=== PATIENT | female | born 1980 | race Caucasian/White ===

== ENCOUNTER → 2018-12-20 | Outpatient (CLI) | payer OTHER, SELFPAY ==
[2016-11-26 09:05] VITALS: BMI 36.0
[2018-12-20 17:56] LABS: Absolute Lymphocyte Count 1.81 X10^3/ul (0.83-4.51); Absolute Neutrophil Count 7.6 X10^3/uL (2.0-7.7); Basophil# 0.11 X10^3/uL; Eosinophil# 0.09 X10^3/uL; Eosinophils% 0.9 % (0-5); Hematocrit 39.1 % (37-47); Hemoglobin 12.7 g/dl (12.0-15.0); Lymphocyte # 1.81 X10^3/ul (4.0); Lymphocyte % 17.2 % (19-41); Mean Corp Hgb Conc 32.5 g/gl (32-36); Mean Corpuscular Hgb 27.3 pg (27.0-32.0); Mean Corpuscular Volume 83.9 fL (81-99); Mean Platelet Vol. 10.2 fl (6.2-12.0); Monocyte# 0.87 X10^3/uL; Monocyte% 8.3 % (0-10); Neutrophil # 7.61 X10^3/uL (2.7-7.7); Neutrophil % 72.4 % (47-70); Platelet Count 259 K/mm3 (150-450); RBC Distribution Width CV 14.1 % (11.6-14.6); RBC Distribution Width SD 43.1 fl (35.1-43.9); Red Blood Count 4.66 M/mm3 (4.2-5.4); White Blood Count 10.5 K/mm3 (4.4-11.0)
[2018-12-20 17:57] LABS: POSITIVE COUNT NO; POSITIVE DIFFERENTIAL NO; POSITIVE MORPHOLOGY NO
[2018-12-20 18:13] LABS: Vitamin D,25 Hydroxy 20.5 ng/mL (29.95-100.01)
[2018-12-20 18:17] LABS: Anion Gap 7 (5-15); BUN 12 mg/dL (7-18); BUN/Creat Ratio 15.3 RATIO (10-20); Calcium,Total 8.6 mg/dL (8.5-10.1); Chloride 107 mmol/L (98-107); Creatinine, Serum 0.78 mg/dL (0.55-1.02); EST Glomerular Filtration Rate 88 mL/min (>60); Est Glom Filt Rate - Afr Amer 106 mL/min (>60); Glucose 76 mg/dL (74-106); Potassium 3.8 mmol/L (3.5-5.1); Sodium Level 140 mmol/L (136-145); Thyroid Stim Hormone (TSH) 1.72 uIU/mL (0.358-3.74)
== END | disposition home or self-care (01) ==
LOC: MTLAB 16:58
PROVIDERS: Family Provider Family Medicine; PCP Family Medicine; Referring Provider Family Medicine; Visit Provider Family Medicine
DX: R53.83 Other fatigue (principal)
CPT/HCPCS: 36415; 80048; 82306; 84443; 85025

== ENCOUNTER 2019-10-04 05:51 | Day surgery (SDC) | payer OTHER, SELFPAY ==
[2019-08-09 08:36] VITALS: BMI 36.0
--- NOTE | 2019-08-09 09:01 | HP_ITS ---
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 Is patient in pain?: No Allergies Antihistamines - Alkylamine Adverse Reaction (Verified 08/09/19 08:35) Vomiting meperidine [From Demerol] Adverse Reaction (Verified 08/09/19 08:35) Vomiting Medications Levonorgestrel [Mirena] 1 ea IY DAILY 11/25/16 [History Confirmed 11/26/16] cholecalciferol (vitamin D3) 2,000 unit chewable tablet 2,000 unit PO DAILY 08/09/19 [History Confirmed 08/09/19] citalopram 20 mg tablet 20 mg PO DAILY 08/09/19 [History Confirmed 08/09/19] lansoprazole 30 mg capsule,delayed release 30 mg PO DAILY 08/09/19 [History Confirmed 08/09/19] [facility] Medical History Epigastric pain (Acute) Surgical History S/P appendectomy (Acute) S/P section (Acute) S/P hemorrhoidectomy (Acute) S/P laparoscopic cholecystectomy (Acute) S/P myringotomy with insertion of tube (Acute) S/P tonsillectomy and adenoidectomy (Acute) Family History Father CAD (coronary artery disease) Hypertension Brother CAD (coronary artery disease) Hypertension Social History (Updated 08/09/19 @ 09:[address] Johnson Galvin MD) Smoking Status: Never smoker alcohol intake: never HPI HPI HPI: ATNIA LE, is a 38 F who presents to the office today for HPI HPI Surgical H&P: Yes HPI: TANIA LE, is a 38 F who presents to the office today for surgical consultation regarding escalating reflux symptoms. The patient was referred by Dr Sonido Miller and a written copy of my surgical consult recommendations will be returned to him. Very pleasant 38-year-old female. I had an opportunity to assist her November 26, 2016 with a diagnostic laparoscopy and laparoscopic partial omentectomy and resection of a area of pericolonic hemorrhage and I added a laparoscopic appendectomy to that. She had presented with abdominal pain and had had hemorrhage into her omentum that was identified laparoscopically. She is had no additional problems since that time. She does note that she has had some progressive weight gain. Current BMI is 36. Dating all the way back to college she was on ranitidine therapy intermittently to control reflux symptoms. More recently she was feeling a lump in her throat and had escalating GERD symptoms. Heartburn. She was placed on Prevacid therapy March 2019. She is still requiring this therapy to control her reflux symptoms. She has never had an upper endoscopy. She otherwise enjoys good health. Exam Const General: cooperative, comfortable, no acute distress Nutritional Appearance: obese Orientation: alert, awake, oriented x3 Chest Chest palpation & inspection: normal inspection of the chest Resp Effort & Inspection: normal respiratory effort Auscultation: clear to auscultation bilaterally Cardio Rate: regular rate Rhythm: regular rhythm GI Palpation: soft Auscultation: normal bowel sounds Neuro General: alert, awake Extrem General: no calf tenderness bilaterally Psych Appearance: grossly normal Assessment & Plan Problems 1. Gastroesophageal reflux disease, esophagitis presence not specified K21.9 Plan I concur with recommendations to proceed with a esophagogastroduodenoscopy with possible biopsy or polypectomy as indicated. Very careful inspection for reflux disease will be pursued. The patient is aware of technique, benefit, risk and alternatives. We will schedule and proceed at her discretion. In addition I have counseled her on the benefit of weight loss in relation to GERD symptoms. I have some suspicion that her slow progressive weight gain is contributing to her escalation of symptoms. I have encouraged her to attempt a 20 to 25 pound weight loss to see if symptoms improve. It is of note that the patient's suggest that her feeling of a lump in her throat disappeared when she started the Prevacid. She does have a rather thick neck and I have difficulties palpating her thyroid. I instructed her that if her symptoms were to recur then she might consider a thyroid ultrasound. I very much appreciate the kind opportunity of assisting with her surgical care Cc: Dr Sonido Gavlin M.D., F.A.C.S. Orders Orders: EGD Today Coding Level of Care Code 16161 Diagnoses Gastroesophageal reflux disease, esophagitis presence not specified K21.9 ??Esophagitis presence: esophagitis presence not specified 08/09/19 0901 <Electronically signed by Johnson hedrick MD> Date _ Johnson Galvin MD
[2019-10-04] VITALS (7 sets, daily range): BP systolic 129–173; BP diastolic 72–116; PULSE 74–90; RESP 15–16; TEMP 36.7–36.9; O2SAT 95–100; BMI 42.3
--- NOTE | 2019-10-04 | GASB_PTH ---
PATIENT: TANIA LE LOC: EN U#:[id number] AGE/SX: 38/F ROOM: RE10/04/[address]: Dr. Johnson Galvin MD : 1980 BED: DIS: 10/04/2019 SPEC #: [id number] RECD: 10/04/19 08:48 STATUS: CARMEN ROHAN #: [id number] QUINN: 10/04/19 00:[address]: Johnson Galvin DEPT: SURGICAL PATHOLOGY RECD BY: Quinn Kuhn ENTERED: 10/04/19 10:44 SP TYPE: Gastric Bx OTHR DR: Dr. Sonido Miller MD Tissues: A - Duodenum, NOS B - Gastric mucous membrane C - Esophagus, NOS Procedures: Surgery Specimen Level IV HEADER OPERATION: EGD (MOD) PRE-OP DIAGNOSIS: GERD TISSUE SUBMITTED: A - Duodenum biopsy, B - Antrum biopsy for H. pylori and pathology, C - Distal esophageal biopsy MICROSCOPIC DIAGNOSIS A. Duodenum, biopsy: A fragment of small intestinal mucosa, no pathologic diagnosis. B. Antral biopsy: Mild gastritis. See microscopic description and comment. C. Distal esophageal biopsy: Fragments of squamous epithelium with focal minimal chronic inflammation. SJ:irvin 10/05/19 COMMENT B. The results of immunohistochemistry for Helicobacter pylori will be reported separately ([id number]). MICROSCOPIC DESCRIPTION Slides are reviewed. B. The specimen shows fragments of gastric mucosa with chronic inflammatory cell infiltrates in the lamina propria consisting of lymphocytes and plasma cells, consistent with mild chronic gastritis. GROSS DESCRIPTION A - Received in fixative is one container labeled with the patient's name and designated duodenal biopsy. The specimen consists of one irregular fragment of light brunson soft tissue that measures 0.3 x 0.2 x 0.1 cm. The specimen is totally submitted in one cassette. B - Received in fixative is one container labeled with the patient's name and designated antral biopsy. The specimen consists of two irregular fragments of light brunson soft tissue that in aggregate measure 0.6 x 0.3 x 0.1 cm. The specimen is totally submitted in one cassette. C - Received in fixative is one container labeled with the patient's name and designated distal esophageal biopsy. The specimen consists of multiple irregular fragments of light brunson soft tissue that in aggregate measure 1 x 0.3 x 0.1 cm. The specimen is totally submitted in one cassette. / SJ:rg 10/04/19 TC:3 CPT: 85797 x3
[2019-10-04] MEDS: Lactated Ringers 1,000 ML 100 ML IV (06:24)
--- NOTE | 2019-10-04 06:32 | PCM.HP.BLA ---
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 Is patient in pain?: No Allergies Antihistamines - Alkylamine Adverse Reaction (Verified 08/09/19 08:35) Vomiting meperidine [From Demerol] Adverse Reaction (Verified 08/09/19 08:35) Vomiting Medications Levonorgestrel [Mirena] 1 ea IY DAILY 11/25/16 [History Confirmed 11/26/16] cholecalciferol (vitamin D3) 2,000 unit chewable tablet 2,000 unit PO DAILY 08/09/19 [History Confirmed 08/09/19] citalopram 20 mg tablet 20 mg PO DAILY 08/09/19 [History Confirmed 08/09/19] lansoprazole 30 mg capsule,delayed release 30 mg PO DAILY 08/09/19 [History Confirmed 08/09/19] [facility] Medical History Epigastric pain (Acute) Surgical History S/P appendectomy (Acute) S/P section (Acute) S/P hemorrhoidectomy (Acute) S/P laparoscopic cholecystectomy (Acute) S/P myringotomy with insertion of tube (Acute) S/P tonsillectomy and adenoidectomy (Acute) Family History Father CAD (coronary artery disease) Hypertension Brother CAD (coronary artery disease) Hypertension Social History (Updated 08/09/19 @ 09:[address] Johnson Galvin MD) Smoking Status: Never smoker alcohol intake: never HPI HPI HPI: TANIA LE is a 38 F who presents to the office today for HPI HPI Surgical H&P: Yes HPI: TAINA LE, is a 38 F who presents to the office today for surgical consultation regarding escalating reflux symptoms. The patient was referred by Dr Sonido Miller and a written copy of my surgical consult recommendations will be returned to him. Very pleasant 38-year-old female. I had an opportunity to assist her November 26, 2016 with a diagnostic laparoscopy and laparoscopic partial omentectomy and resection of a area of pericolonic hemorrhage and I added a laparoscopic appendectomy to that. She had presented with abdominal pain and had had hemorrhage into her omentum that was identified laparoscopically. She is had no additional problems since that time. She does note that she has had some progressive weight gain. Current BMI is 36. Dating all the way back to college she was on ranitidine therapy intermittently to control reflux symptoms. More recently she was feeling a lump in her throat and had escalating GERD symptoms. Heartburn. She was placed on Prevacid therapy March 2019. She is still requiring this therapy to control her reflux symptoms. She has never had an upper endoscopy. She otherwise enjoys good health. Exam Const General: cooperative, comfortable, no acute distress Nutritional Appearance: obese Orientation: alert, awake, oriented x3 Chest Chest palpation & inspection: normal inspection of the chest Resp Effort & Inspection: normal respiratory effort Auscultation: clear to auscultation bilaterally Cardio Rate: regular rate Rhythm: regular rhythm GI Palpation: soft Auscultation: normal bowel sounds Neuro General: alert, awake Extrem General: no calf tenderness bilaterally Psych Appearance: grossly normal Assessment & Plan Problems 1. Gastroesophageal reflux disease, esophagitis presence not specified K21.9 Plan I concur with recommendations to proceed with a esophagogastroduodenoscopy with possible biopsy or polypectomy as indicated. Very careful inspection for reflux disease will be pursued. The patient is aware of technique, benefit, risk and alternatives. We will schedule and proceed at her discretion. In addition I have counseled her on the benefit of weight loss in relation to GERD symptoms. I have some suspicion that her slow progressive weight gain is contributing to her escalation of symptoms. I have encouraged her to attempt a 20 to 25 pound weight loss to see if symptoms improve. It is of note that the patient's suggest that her feeling of a lump in her throat disappeared when she started the Prevacid. She does have a rather thick neck and I have difficulties palpating her thyroid. I instructed her that if her symptoms were to recur then she might consider a thyroid ultrasound. I very much appreciate the kind opportunity of assisting with her surgical care Cc: Dr Sonido Galvin M.D., F.A.C.S. Orders Orders: EGD Today Coding Level of Care Code 72493 Diagnoses Gastroesophageal reflux disease, esophagitis presence not specified K21.9 Esophagitis presence: esophagitis presence not specified Since the patient's office visit she continues to complain of upper abdominal pain and a sensation of acid. She states that she has to take an acids because of breakthrough discomfort despite her proton pump inhibitor. I plan to proceed with a esophagogastroduodenoscopy with possible biopsy or polypectomy is indicated. I definitively will sample for H. pylori as well. Johnson Galvin M.D., F.A.C.S. Essential Procedure Criteria Procedure Essential: Yes Criteria Note: On 08/29/2019 the [facility] ([facility]) Public Order signed by [facility] Director Chanel Ruiz M.D., regarding the Management of Non-Essential Surgeries and Procedures for the purpose of preserving Personal Protective Equipment (PPE) and critical hospital capacity and resources within [place] went into effect as of 08/30/2019 at 5:00PM. According to the [facility] Public Order: This action will remain in full force and effect until the State of Emergency declared by the Governor no longer exists or the Director of the [facility] rescinds or modifies this Order.. This [facility] order stated all non-essential or elective surgeries and procedures that utilize PPE should be delayed unless there is undue risk to the current or future health of a patient. After reviewing the aforementioned [facility] Public Order and the patients clinical case, I have determined that the scheduled procedure meets the criteria to go forward. Risk to Patient if Procedure Delayed: Risk of rapidly worsening to severe symptoms
--- NOTE | 2019-10-04 07:30 | IMM_PTH ---
PATIENT: TANIA LE LOC: EN U#:[id number] AGE/SX: 38/F ROOM: RE10/04/[address]: Dr. Johnson Galvin MD : 1980 BED: DIS: 10/04/2019 SPEC #: [id number] RECD: 10/04/19 11:47 STATUS: CARMEN RESky #: [id number] QUINN: 10/04/19 07:[address]: Johnson Galvin DEPT: IMMUNOHISTOCHEMISTRY RECD BY: Joselyn Mead ENTERED: 10/04/19 11:48 SP TYPE: IMMUNO OTHR DR: Dr. Sonido Miller MD Tissues: B - Stomach, NOS Procedures: H Pylori (initial) PHYSICIAN & INSTITUTION [place] [address] SPECIMEN INFORMATION: Tissue Source: B - Antrum biopsy Clinical Info: GERD Specimen Number: [id number] CPT code: 92796 METHODOLOGY: Deparaffinized sections of prefer/formalin-fixed tissue or PAP/DQ stained slides are incubated with monoclonal/polyclonal antibodies/oligonucleotide probes. Localization is made via biotin free immunoperoxidase method. Appropriate controls are performed and reacted as expected. Results on target cell population are indicated in the following table: RESULTS: ANTIBODY / CLONE RESULT Block B H Pylori (polyclonal) negative These tests were developed and their performance characteristics determined by [facility]. They may not have been cleared or approved by the U.S. Food and Drug Administration. The FDA has determined that such clearance or approval is not necessary. INTERPRETATION: B. Antrum biopsy: Negative for Helicobacter pylori organisms. SJ:irvin 10/06/19
--- NOTE | 2019-10-11 12:27 | OP.CCLET_ITS ---
10/11/2019 Sonido Miller [address] [place] [address] Re : Upper GI endoscopy procedure for Urszula Garcia Dear Dr. Miller This procedure was performed on Friday, October 04, 2019. My impressions and recommendations are as follows: Impressions : - LA Grade A reflux esophagitis. Biopsied. - Medium-sized hiatal hernia. - Z-line regular, 37 cm from the incisors. - Erythematous mucosa in the antrum. Biopsied. - Normal examined duodenum. Biopsied. Recommendations : - Discharge patient to home. - Resume previous diet. - Continue present medications. - Telephone my office for pathology results in 1 week. Anticipate ongoing weight loss; consider future esophageal manometry and possible reflux procedure pending weight improvement My findings are described in the full procedure note, which is enclosed. If I can be of further assistance, please feel free to contact me at Doctor phone number(s): Work: . Sincerely, Johnson Galvin MD 10/04/2019 7:44:40 AM This report has been signed electronically.
--- NOTE | 2019-10-11 12:27 | OP.EGD_ITS ---
Patient Name: Urszula Garcia Procedure Date: 10/04/2019 7:09 AM Date of : 1980 Age: 38 Procedure: Upper GI endoscopy Indications: Epigastric abdominal pain, Suspected esophageal reflux Providers: Johnson Galvin MD Referring MD: Sonido Miller Medicines: Midazolam 3.5 mg IV, Fentanyl 100 micrograms IV Complications: No immediate complications. Procedure: Pre-Anesthesia Assessment: - Prior to the procedure, a History and Physical was performed, and patient medications and allergies were reviewed. The patient's tolerance of previous anesthesia was also reviewed. The risks and benefits of the procedure and the sedation options and risks were discussed with the patient. All questions were answered, and informed consent was obtained. Prior Anticoagulants: The patient has taken no previous anticoagulant or antiplatelet agents. ASA Grade Assessment: II - A patient with mild systemic disease. After reviewing the risks and benefits, the patient was deemed in satisfactory condition to undergo the procedure. After obtaining informed consent, the endoscope was passed under direct vision. Throughout the procedure, the patient's blood pressure, pulse, and oxygen saturations were monitored continuously. The gastroscope was introduced through the mouth, and advanced to the second part of duodenum. The upper GI endoscopy was accomplished without difficulty. The patient tolerated the procedure well. Moderate Sedation: Moderate (conscious) sedation was personally administered by the endoscopist. The following parameters were monitored: oxygen saturation, heart rate, blood pressure, and response to care. Total physician intraservice time was 12 minutes. Scope In: 7:31:36 AM Scope Out: 7:38:31 AM Total Procedure Duration Time 0 hours 6 minutes 55 seconds Findings: LA Grade A (one or more mucosal breaks less than 5 mm, not extending between tops of 2 mucosal folds) esophagitis with no bleeding was found 37 cm from the incisors. Biopsies were taken with a cold forceps for histology. A medium-sized hiatal hernia was present. The Z-line was regular and was found 37 cm from the incisors. Diffuse mildly erythematous mucosa without bleeding was found in the gastric antrum. Biopsies were taken with a cold forceps for histology. The examined duodenum was normal. Biopsies were taken with a cold forceps for histology. Impression: - LA Grade A reflux esophagitis. Biopsied. - Medium-sized hiatal hernia. - Z-line regular, 37 cm from the incisors. - Erythematous mucosa in the antrum. Biopsied. - Normal examined duodenum. Biopsied. Recommendation: - Discharge patient to home. - Resume previous diet. - Continue present medications. - Telephone my office for pathology results in 1 week. Anticipate ongoing weight loss; consider future esophageal manometry and possible reflux procedure pending weight improvement Procedure Code(s): --- Professional --- 35360, Esophagogastroduodenoscopy, flexible, transoral; with biopsy, single or multiple 96031, 59, Moderate sedation services provided by the same physician or other qualified health neonatal intensive care nurse performing the diagnostic or therapeutic service that the sedation supports, requiring the presence of an independent trained observer to assist in the monitoring of the patient's level of consciousness and physiological status; initial 15 minutes of intraservice time, patient age 5 years or older Diagnosis Code(s): --- Professional --- K21.0, Gastro-esophageal reflux disease with esophagitis K44.9, Diaphragmatic hernia without obstruction or gangrene K31.89, Other diseases of stomach and duodenum R10.13, Epigastric pain CPT copyright 2017 [employer]. All rights reserved. The codes documented in this report are preliminary and upon sample steamer review may be revised to meet current compliance requirements. Johnson Galvin MD 10/04/2019 7:44:40 AM This report has been signed electronically. Number of Addenda: 0 Note Initiated On: 10/04/2019 7:09 AM
== END 2019-10-04 08:25 | disposition home or self-care (01) ==
LOC: EN 05:53 → AC 05:53
PROVIDERS: PCP Family Medicine; Referring Provider Family Medicine; Visit Provider Surgery
PROC: (CPT 43239; principal; 2019-10-04 07:25)
DX: K29.50 Unspecified chronic gastritis without bleeding (principal); K21.0 Gastro-esophageal reflux disease with esophagitis; K44.9 Diaphragmatic hernia without obstruction or gangrene
CPT/HCPCS: 43239; 88305; 88342; 99152; 99153; J7120

== ENCOUNTER → 2019-12-04 16:26 | Outpatient (CLI) | payer OTHER, SELFPAY ==
[2019-10-04 06:15] VITALS: BMI 42.3
[2019-12-04 18:09] LABS: Hematocrit 39.9 % (37-47); Hemoglobin 12.1 g/dL (12.0-15.0); Mean Corp Hgb Conc 30.3 g/dL (32-36); Mean Corpuscular Hgb 26.7 pg (27.0-32.0); Mean Corpuscular Volume 88.1 fL (81-99); Mean Platelet Vol. 10.5 fl (6.2-12.0); Platelet Count 287 K/mm3 (150-450); RBC Distribution Width CV 14.5 % (11.6-14.6); RBC Distribution Width SD 46.2 fl (35.1-43.9); Red Blood Count 4.53 M/mm3 (4.2-5.4)
[2019-12-04 18:30] LABS: Anion Gap 7 (5-15); BUN 11 mg/dL (7-18); BUN/Creat Ratio 15.9 RATIO (10-20); Calcium,Total 8.8 mg/dL (8.5-10.1); Chloride 106 mmol/L (98-107); Creatinine, Serum 0.69 mg/dL (0.55-1.02); EST Glomerular Filtration Rate 101 mL/min (>60); Est Glom Filt Rate - Afr Amer 122 mL/min (>60); Glucose 79 mg/dL (74-106); Magnesium 1.9 mg/dL (1.6-2.6); Potassium 4.1 mmol/L (3.5-5.1); Sodium Level 139 mmol/L (136-145)
== END ==
PROVIDERS: PCP Family Medicine; Referring Provider Family Medicine; Visit Provider Family Medicine
DX: R42 Dizziness and giddiness (principal)
CPT/HCPCS: 36415; 80048; 83735; 85027

== ENCOUNTER 2020-10-08 09:00 | Outpatient (RCR) | payer BC, SELFPAY ==
[2019-10-04 06:15] VITALS: BMI 42.3
--- NOTE | 2020-10-08 09:00 | BH.COMM_ITS ---
Communication Note - Communication with Client Communication Note: Met with pt to complete initial paperwork. No significant changes since pre-admission screening. Completed [facility] Suicide Screening. Current risk is moderate. No SI since 09/22/20 noted. Protective factors. Future- oriented.
--- NOTE | 2020-10-08 09:05 | BH.SGPN.GN ---
Behaviors/Verbalizations/Mental Status: []Client alert and oriented, neatly dressed and groomed. Eye contact good. Motor activity appropriate. Speech within normal limits. Affect constricted, mood anxious. Thoughts linear, logical, no signs of hallucinations or delusions. Reviewed client?s symptom tracker, no risk for suicidal ideation, plan, or intent as of 10/08/20 Client Response/Progress/Benefit: []Client responded well to session, attentive and receptive to feedback. Client's first day of IOP tx and reports feeling overwhelmed this morning. Client received supportive statements from peers to reduce anxiety on her first day. Client stated her biggest goal while in IOP is to gain healthy boundaries to support client's emotions and relationships. Client will be coming to IOP and working part-time and she addressed the need for self-care. Appeared to benefit from connecting with peers and gaining support. Will continue IOP tx to prevent decompensation, improve daily functioning, and learn healthy coping skills. Narrative Note: []
--- NOTE | 2020-10-08 10:10 | BH.SGPN.GN ---
Behaviors/Verbalizations/Mental Status: [] Eye contact is good. Motor activity is appropriate. Appearance is casual. Speech is Appropriate. Mood is depressed. Affect is flat. Thoughts are linear and logical. No evidence of psychosis. Client Response/Progress/Benefit: [] Pt was an active participant in group discussion and activity. Attentive during psychoeducation. Along with peers she provided insight and feedback on the definition of stress which included; negative reaction to changes, chaos, racing thoughts, physical pains, dissociation, and exhaustion. Also provided feedback on the benefits of stress which included; motivation, improved mood, helps us complete goals, and can lead to accomplishments. Completed stress jar with primary stressors being mental health, marriage, finances . Benefited from group by identifying distress vs eustress as well as current stressors and their impact. Will continue in IOP to maintain safety, prevent decompensation, and increase healthy coping. Narrative Note: []
--- NOTE | 2020-10-08 11:18 | BH.SGPN.GN ---
Behaviors/Verbalizations/Mental Status: []Client alert and oriented, neat and casually dressed and groomed. Eye contact good. Motor activity WNL. Speech within normal limits. Affect congruent, mood anxious. Thoughts linear, logical, no signs of hallucinations or delusions. Client Response/Progress/Benefit: []Client new to IOP tx. Did well to remain engaged in session AEB listening attentively to others, providing input during session, and taking notes throughout. Client remained attentive during discussion about the 4 A's of managing stress and reflected with the group on the various benefits of each. Client stated she wants to work on stressor of negative thoughts about herself and her mental health. Client reported she is going to practice accepting that mental health is important to address and practice identifying and challenging irrational thought patterns. Noted this will help to reduce shame regarding need for mental health tx. Seemed to benefit from increased awareness of the impact of stress on mental health and relationships, as well as increasing repertoire of stress management strategies. Client is to continue treatment to begin focusing on stress management and emotion regulation, as well as improving healthy coping, and preventing decompensation. Narrative Note: []
--- NOTE | 2020-10-09 10:00 | BH.SGPN.GN ---
Behaviors/Verbalizations/Mental Status: [] Eye contact is good. Motor activity is appropriate. Appearance is casual. Speech is Appropriate. Mood is depressed. Affect is flat. Thoughts are linear and logical. No evidence of psychosis Client Response/Progress/Benefit: [] Pt was an active participant in group discussion and activity. Attentive during psychoeducation. Along with peers was able to identify barriers to taking action on her mental health which included; fear of failure, the unknown, change, one's environment, past negative experiences, being passive, and fear of vulnerability. Identified several symptoms and stressors that she would feels are holding her back from progress such as guilt, stress, unhealthy coping, not deserving happiness, and impossible standards. Benefited from increased self-awareness of obstacles. Will continue in IOP to maintain safety and increase healthy coping skills. Narrative Note: []
--- NOTE | 2020-10-09 10:00 | BH.NA_ITS ---
Physical Data - Vital Signs Pulse Rate: 80 Blood Pressure: 135/95 - Height/Weight Height: 1.57 m Weight:: 104.326 kg Weight in Pounds: 230.0 lbs Current Medication Compliance - Medication Compliance Do you take your medication as prescribed?: Yes Nutritional History - Appetite Nutritional Instructions:: If client shows signs of a swallowing problem, weight change of 10 pounds or more in the last month, or is on a diabetic diet, the physician will review and request a dietitian consult, as appropriate. All unintentional weight loss will be referred to the physician for decision on need for dietitian consult. Describe your appetite:: Good Additional nutritional information:: Client states last week her appetite was decreased, but states her appetite has returned to normal. Functional Assessment - Sleep Pattern Describe any problems with sleeping: Client states she sleeps 6-7 hours per night. - Activities Motor Activity:: Functional Sensory/Communication Assess - Communication Problems Do you have difficulty understanding what people are saying?: No Medical Problems/History - Gastrointestinal Conditions Gastrointestinal: Other (See comments) Comments:: GERD - Pain Assessment Do you have acute or chronic pain?: No - Family History Family History: Family History (Last Reviewed 08/09/19 @ 08:34 by Laura Escobedo) Father CAD (coronary artery disease) Hypertension Brother CAD (coronary artery disease) Hypertension Surgical History - Surgical History Have you had any surgeries? If so, list type and date:: Yes - x2, hemorrhoidectomy, T&A, appendectomy, myringotomy Substance Abuse - Substance Abuse Please describe substance abuse in the last 30 days:: Client states that she drinks alcohol socially once per week. Client denies tobacco or drug use. Client drinks one beverage with caffiene daily. Mental Status Summary - Mental Status Significant Findings/Observations on Appearance and Mood:: Client is alert and oriented x 4. Client is cooperative with assessment and makes good eye contact. Client's voice has normal rate and rhythm. Client has appropriate affect and makes logical associations. Client denies delusions/hallucinations. Client states she has passive SI at times. Suicide Assessment - Suicidal Ideation Are you currently or have you been suicidal in the past?: Yes - passive SI at times Suicidal Intentional Rating Scale (SIRS): Suicidal thoughts (past) Physician Notification: If Active suicidal thoughts/Will not contract for safety is checked, contact physician and document in the Physician Notification section below. Assault History/Potential Past Psychiatric History - MH Treatment Hx Age of first mental health symptoms: Client states she was diagnosed with depression around the age of 36. Describe (age, circumstance, etc) any past hospitalizations: None. Current providers for mental health treatment (counselor, psychiatrist, medical case worker, etc.): Client sees kiln setter at [facility], and has had various counseling sessions through [facility], [facility], and [facility]. Fall Risk Assessment - Age Age: Less than 60 - Mental Status Mental Status: Willing & able to ask for assistance when needed - Physical Status Physical Status: No problems - Impairments Impairments: None - Elimination Elimination: Continent AND independent - Gait or Balance Gait or Balance: Walks independently - Hx of Falls History of falls in the past 6 months: No known history - Medications/Substances Psychotropics:: Antidepressants Medications/substances used within the past 24 hours or ordered to administer: 1-2 of the medications/substances listed above - Total Score Total Points:: 1 RN Summary of Impressions - Impressions Recommendations: Include psychiatric and medical issues, treatment planning recommendations, and discharge planning needs. Impressions: Psychiatric Issues: major depressive disorder, recurrent, severe without psychosis; generalized anxiety disorder; rule out dependent traits - Level of Care How do the client's current symptoms and functional deficits support need for this level of care?: Client was referred to IOP by outpatient therapist after recent SI. Earlier this month, client had an argument with and left with his gun with intent to kill herself. Client states she visited her grandparents vicky in [place] and just kept driving to go to [place] in [place]. Client states she called her when she got to [place] and told him, and also her mother came to [place] to stay with her before she returned to [place]. Client states she has had SI in the past but this was the strongest urge she has had. Client reports passive SI since this incident. Client denies SI on this day. Client also endorses decreased energy, decreased motivation, and anhedonia. IOP will promote gains and prevent further decompensation while providing social support and skills training.
[2020-10-09 10:20] VITALS: BP 135/95; PULSE 80
--- NOTE | 2020-10-09 11:07 | BH.SGPN.GN ---
Behaviors/Verbalizations/Mental Status: []Client alert and oriented, neatly dressed and groomed. Eye contact good. Motor activity appropriate. Speech within normal limits. Affect constricted, mood dysthymic. Thoughts linear, logical, no signs of hallucinations or delusions. Client Response/Progress/Benefit: []Client responded well to session, taking notes and participating in worksheet discussion. Client connected with the zones of action/change and shared that making sustainable change occurs outside of one?s comfort zone, but it is important not to make too many changes at once. Client set a goal to gain control over her use of unhealthy coping skills. Client wants to be able to work on this by learning three new coping skills and practicing these skills at least 3 times a week. Client believes she will need support from therapist and a friend to accomplish this goal. Appeared to benefit from identifying a small goal to benefit mental health. Will continue IOP tx to prevent decompensation, learn healthy coping skills, and improve emotional regulation skills. Narrative Note: []
--- NOTE | 2020-10-09 12:47 | PCM.BH.PSYEV ---
Psychiatric Evaluation Initial Evaluation Initial Evaluation: History of Present Illness: [] Patient is a 39-year-old female with a history of depression for the past year who was referred to the [facility] behavioral health program by her counselor. Patient has been for 14 years and has been for 1 year. The patient did not want the separation but her who is also a police liaison initiated the separation and has a new girlfriend. On September 22, 2020 the patient had an argument with her and the patient became upset and grabbed one of his guns and left the house planning to drive to [place] in order to kill herself. The patient called her after she got to [place] and he called the police. Family members also who lived in [place] area came and stayed with the patient. The police took the gun from the patient but the patient was not admitted to the psychiatric unit there. Since October 22, 2020 the family members have stayed with the patient almost 24/. The patient currently lives alone and has shared custody with her of her 12 and 7-year-old sons. The guns are in a locked safe now that she does not have the kessler for. 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 She returned to work part-time a few days ago after missing work due to the above incidents. The patient states that she feels much better now. However, while driving to [place] the patient took antihistamines, Percocet and alcohol while driving. The reason she did not kill her self she says is because she did not want to leave her children. Her biggest stress now she feels is her separation from her . For primary support she has friends and her mother. She endorses feeling hopelessness and occasional worthlessness. She has low motivation and depressed mood. She enjoys being with her sons but not much else. Her appetite was decreased but had is improving in the past few days. Sleep is good at about 7 hours a night. She feels fatigued during the day and her energy level is low. She feels her concentration is okay overall. She does endorse feeling guilty over her recent actions. She is a worrier by nature and has been ruminating negatively. She denies any suicidal ideation or passive thoughts of since September 222020. She denies homicidal ideation, hallucinations or delusions, pb, panic attacks, OCD, eating disorder, trauma, PTSD, seizure or head trauma. The patient does admit to a history of cutting and the most recent episode of cutting was on September 23, 2020 where she cut her thigh and arm superficially with a razor. No treatment was required for this. Prior to that she had not cut herself since age 18. Current Psychiatric Medications: [] Celexa 40 mg p.o. daily (x1 year); Wellbutrin XL 150 mg p.o. every morning (x1 month). Past Psychiatric History: [] The patient has no history of psychiatric admissions. No suicide attempts ever. The patient had suicidal ideation in March 2020 and held a gun to her head at that time. She also had suicidal ideation in June 2020. The patient has a psychiatrist and last saw her on August 2020 when the Wellbutrin was added. The patient first cut herself at age 16 but stopped cutting at age 18 until September 23, 2020 as noted above. She was first depressed around age 12 and she remembers feeling down and running away from home but denies ever having been abused. She took her first psychiatric meds 4 years ago and his went off the meds once and now is back on them in the past 4 years. Past medications include Celexa only and Wellbutrin. She has had counseling at age 24, age 32 and currently and this has been somewhat helpful. Substance Use History: [] Non-smoker. No marijuana use. No drug use. No rehab ever. She drinks about 2 alcoholic drinks per week. Allergies: [] Antihistamines, alkylamine, Demerol Medications: [] Celexa, Wellbutrin, Prevacid, vitamin D Past Medical History: [] She has history of GERD. No other medical issues. She is a 2 para 2 with a history of 2 sections. She has a Mirena IUD in place and does not have any menstrual periods on this. She has had a tonsillectomy, ear tubes, cholecystectomy, appendectomy. Family Psychiatric History: [] Mother is 60 years old and father is 62 years old. Father has a history of depression otherwise no psych issues in the family. No completed suicides in the family. She has a brother who is an alcoholic. Personal/Social History: [] She was born and raised in [place] [facility] and describes her childhood as good. She denies any verbal, physical or sexual abuse ever. Her parents when the patient was 5 years old and she lived with her mother but saw her father every week. Her mother and father are both loving. Her mother remarried when the patient was 8 years old and the patient got along well with her stepfather and denies any abuse there. She has 1 older brother 5 years older and one half brother 10 years younger than her who she feels that she helped raise. She did well in school and graduated high school and got a BA in college in communications. She got at age 25 and her marriage lasted 14 years and they have been for 1 year. has a girlfriend and he is the one that initiated the separation. They have 2 children 2 boys ages 7 and 12. No abuse in the marriage. The patient currently works as an manager surgery for the past 11 years and likes her job. 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 Legal History: [] Negative. No arrests. No DUIs. 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 Review of Systems: [] Negative except as noted in present illness. Reviewed in nurses notes. Vital Signs: [] Mental Status Examination: [] Patient is a 39-year-old overweight female who is seen wearing a mask due to the pandemic and is casually dressed and groomed with good hygiene. She is cooperative during the interview and has no psychomotor agitation or retardation. Eye contact is good and speech is normal rate and rhythm and fluent with no pressure. Mood is depressed. Affect is constricted. Thought process is goal-directed and organized. Thought content: No evidence of thoughts of , suicidal or homicidal ideation, hallucinations or delusions. Reality testing is intact. Intelligence is above average. Judgment is intact. Insight: Limited but some present. Impulsivity: Moderate. Diagnoses: [] [place] I: [] Major depressive disorder, recurrent, severe without psychosis; generalized anxiety disorder [place] II: [] Deferred, rule out dependent traits [place] III: [] Negative [place] IV: [] Primary support issues Plan: [] The patient will start the IOP program at [facility] as the structure, support, education, and group therapy will hopefully prevent worsening of the patient's symptoms which might require hospitalization. The patient felt safe during the interview and if it anytime she does not feel safe she will let us know or go to the emergency room. The risks, options, possible complications and side effects of the medications were discussed with the patient and she understands and accepts these. She agrees to increase her Wellbutrin XL to 300 mg p.o. every morning. A prescription was sent in for this. She will continue to follow-up with her outpatient psychiatric and medical providers and I will see the patient in follow-up in 2 weeks.
--- NOTE | 2020-10-09 12:58 | BH.DR.ITP ---
Initial Treatment Plan Patient Information Visit Information: ADMISSION DATE: EXPECTED LOS: 4-6 weeks Problems/Symptoms Problem #1:: Depression Symptom:: Sadness, hopelessness, worthlessness, anhedonia, decreased appetite, fatigue, low energy, guilt, history of suicidal ideation Problem #2:: Anxiety Symptom:: Worry, rumination
--- NOTE | 2020-10-09 14:32 | BH.MTP_ITS ---
Master Treatment Plan - Patient Information Program Physician:: Dr. Sylvia Gonsalez Primary Therapist:: Desiree TRUJILLO - Psychiatric Diagnoses Psychiatric Diagnoses:: Major depressive disorder, recurrent, severe without psychosis; generalized anxiety disorder; rule out dependent traits. Diagnosis Code(s):: F 33.2 - Estimated LOS Estimated LOS (in weeks):: 6 Problem/Goal #1 - Problem/Goal #1 Stated Goal:: Client will decrease depressive symptoms, anhedonia, guilt, and passive wishes due to major depression disorder. Description of Barriers: Client is going through a divorce which causes a lot of stress, resentment, and change. Client reports lack of self-care as well as negative thoughts about herself. Client struggles to ask for help and is struggling with setting healthy boundaries. Functional Impact: Client is a 39-year-old female with a history of depression. Client was referred to [facility] tx by her outpatient therapist due to worsening mental health and suicidal ideations. Client reports decompensation over the past year, but her depression worsened over the past month. On 09/22/20, client reports she had a significant argument with her ex- who she has been from for a year. Following the argument, client took a gun and got in her car with a plan to drive to [place] to kill herself. Client also admits to drinking and taking percocet and antihistamines while driving. Client was not admitted and denies any SI since then. Client does endorse a depressed mood, poor appetite, low energy, hopelessness, guilt, and anhedonia. Client is currently on a reduced schedule at work to focus on improving her mental health. Goal Relevant Strengths/Supports: Client is motivated, connected with outpatient mental health services, and has support from family and friends. - Objectives Objective #1 Stated Objective: Client will learn and utilize 2-3 healthy coping strategies to better manage depressive symptoms as shown by reducing DSM-5 scores for depression Interventions: Through group and individual sessions, therapist will help client identify triggers and warning signs of depression and emotional dysregulation including emotional, physical, and behavioral changes. Therapist will teach client various coping skills to manage her symptoms and give client tangible resources to use to regulate emotions. Therapist will use cognitive restructuring techniques and help client gain awareness of negative thoughts that reinforce guilt and depression. Therapist will provide psychoeducation on maintenance cycles and help client learn ways to break unhealthy maintenance cycles. Therapist will help client incorporate behavioral activation and assist client in setting SMART goals. Discharge Criteria: Client will have met this goal when she can report learning and using at least 2 coping skills to manage depressive symptoms. Additionally, client will have met this goal when her DSM-5 scores for depression show a decrease. Target Date: 11/19/20 Review Date: 11/05/20 Status: open Objective #2 Stated Objective: Client will identify at least 2-3 negative self-talk messages used to reinforce depression/guilt and replace thoughts with positive, realistic messages. Interventions: Therapist will help client identify distorted, negative beliefs about self and replace with more realistic, affirmative messages. Therapist will use CBT to help client increase insight to the connection between thoughts, emotions, and behaviors. Therapist will help client increase awareness of unjustified guilt and how this has impacted client's mental health. Therapist will encourage client to practice thought challenging and self-compassion. Discharge Criteria: Client will have achieved this goal when can verbalize at least 2 negative self-talk messages and effectively replace those thoughts with affirmative messages. Target Date: 11/19/20 Review Date: 11/05/20 Status: open Problem/Goal #2 - Problem/Goal #2 Stated Goal:: Will reduce irritability and anxiety through increasing emotional regulation skills Description of Barriers: Client is going through a divorce which causes a lot of stress, resentment, and change. Client reports lack of self-care as well as negative thoughts about herself. Client struggles to ask for help and is struggling with setting healthy boundaries. Functional Impact: Client is a 39-year-old female with a history of depression. Client was referred to [facility] tx by her outpatient therapist due to worsening mental health and suicidal ideations. Client reports decompensation over the past year, but her depression worsened over the past month. On 09/22/20, client reports she had a significant argument with her ex- who she has been from for a year. Following the argument, client took a gun and got in her car with a plan to drive to [place] to kill herself. Client also admits to drinking and taking percocet and antihistamines while driving. Client was not admitted and denies any SI since then. Client does endorse a depressed mood, poor appetite, low energy, hopelessness, guilt, and anhedonia. Client is currently on a reduced schedule at work to focus on improving her mental health. Goal Relevant Strengths/Supports: Client is motivated, connected with outpatient mental health services, and has support from family and friends. - Objectives Objective #1 Stated Objective: Client will learn 2-3 techniques to better manage interpersonal relationships. Interventions: Through group and individual sessions, client will learn strategies to improve communication, set healthy boundaries, and increase emotional regulation to better manage interpersonal relationships. Discharge Criteria: Client will have accomplished this goal when she can report learning at least two strategies to better manage interpersonal relationships. Target Date: 11/19/20 Review Date: 11/05/20 Status: open Objective #2 Stated Objective: Client will identify 2-3 anxiety and irritability triggers and 2 calming coping skills to reduce intensity of these emotions AEB decreased DSM- 5 cross cutting symptom measure scores. Interventions: Therapist will help client increase awareness of anxiety and irritability triggers and educate client on secondary emotions. Therapist will teach client various calming and mindfulness strategies to promote emotional regulation and reduction of anxiety. Therapist will encourage client to implement healthy coping skills on a regular basis and increase self-care in all areas. Discharge Criteria: Client will have accomplished this goal when can report at least 2 triggers for anxiety and irritability and 2 calming strategies to manage symptoms. Additionally, client will have accomplished this goal when she can re port reduced DSM-5 cross cutting symptoms for anxiety and anger. Target Date: 11/19/20 Review Date: 11/05/20 Status: open
--- NOTE | 2020-10-09 15:32 | BH.PSA_ITS ---
Source of Information - Presenting Problems/Circumstances Problems, Referral Source, Mental Status, Client: Client is a 39-year-old female with a history of depression. Client was referred to [facility] tx by her outpatient therapist due to worsening mental health and suicidal ideations. Client reports decompensation over the past year, but her depression worsened over the past month. On 09/22/20, client reports she had a significant argument with her ex- who she has been from for a year. Following the argument, client took a gun and got in her car with a plan to drive to [place] to kill herself. Client also admits to drinking and taking Percocet and antihistamines while driving. Client was not admitted and denies any SI since then. Client does endorse a depressed mood, poor appetite, low energy, hopelessness, guilt, and anhedonia. Client is currently on a reduced schedule at work to focus on impro ving her mental health. Psychiatric Presentation - Psych Issues & Need for Admission Psychiatric Issues:: Major depressive disorder, recurrent, severe without psychosis F 33.2; generalized anxiety disorder; rule out dependent traits; relationships issues Past Psychiatric History - Treatment Hx Treatment History: Client has no history of psychiatric admissions and denies suicide attempts ever. Client had suicidal ideation in March 2020 and held a gun to her head at that time. Client also had suicidal ideation in June 2020 and on September 22, 2020, client had an argument with her ex- and client became upset and grabbed one of his guns and left the house planning to drive to [place] in order to kill herself. Client has a psychiatrist and last saw her on August 2020 when the Wellbutrin was added. Client first cut herself at age 16 but stopped cutting at age 18 until September 23, 2020, where she cut her thigh and arm superficially with a razor. Client was first depressed around age 12 and she remembers feeling down and running away from home but denies ever having been abused. Client took her first psychiatric meds 4 years ago. Past medications include Celexa only and Wellbutrin. Client has had counseling at age 24, age 32 and has found this helpful. First hospitalization:: n/a Most recent hospitalization:: n/a Medication Trials:: Yes ECT Therapy:: No Age of first mental health symptoms: see treatment history Describe (age, circumstance, etc) any past hospitalizations: no hospitalizations Current providers for mental health treatment (counselor, psychiatrist, case finisher, etc.): Client sees Ivy Chapman at [facility] for medication management. Client is looking for a new outpatient therapist who focuses on divorce issues. Development & Family of Origin - Childhood Significant Childhood Events: Client's parents when client was 5 years old. Client reports her parents were loving and denies any abuse. However, client admits that she feels like men always leave and can connect this belief back to childhood. - Family Who currently lives in your home?: Client is currently from her , but they are not yet . Client's has moved out of their home and client lives in the home with her two sons. Describe family composition:: Client was born and raised in [place], [place] and describes her childhood as good. Client denies any verbal, physical or sexual abuse ever. Client?s when client was 5 years old and she lived with her mother but saw her father every week. Her mother and father were both loving. Client?s mother remarried when client was 8 years old and client got along well with her stepfather and denies any abuse there. Client shared later her mother and stepfather got and this upset client. Client has one older brother 5 years older and one half-brother 10 years younger than client who she feels that she helped raise. Client was close with her younger half- brother, but they are not as close now. Client is close with her older brother and has a good relationship with her mother. Client got at age 25 and her marriage lasted 14 years and they have been for 1 year. has a girlfriend, and he is the one that initiated the separation. They have two boys ages 7 and 12. - Family History Family History: Family History (Last Reviewed 08/09/19 @ 08:34 by Laura Escobedo) Father CAD (coronary artery disease) Hypertension Brother CAD (coronary artery disease) Hypertension Family Hx of Psychiatric or AOD Problems: Client's father has a history of depression and her brother has history of alcoholism. Ethnicity - Culture Do you identify yourself with any particular cultural, ethnic background, or community?: No - Sexuality Sexual Orientation: Heterosexual Mental Status - Memory Recent Memory: Good Remote Memory: Good - Speech Speech: Articulate - Thought Process Thought Process: Ruminations Insight: Fair Judgment: Fair Behavior: Normal - Orientation Orientation: Time, Person, Place - Appearance Appearance: Neat/clean - Mood Mood: Depressed - Affect Affect: Alert Suicide Assessment - Suicidal Ideation Have you ever felt like hurting yourself?: Yes Please explain:: On 09/22/20 client had an argument with her and client became upset and grabbed one of his guns and left the house planning to drive to [place] to kill herself. Client called her after she got to [place], and he called the police. Family members also who lived in [place] area came and stayed with client. The police took the gun from client but client was not admitted to the psychiatric unit there. For a while client?s family stayed with client 04/01. Were you using ETOH/drugs at the time?: Yes Suicidal Intentional Rating Scale (SIRS): Suicidal thoughts (past) Physician Notification: If Active suicidal thoughts/Will not contract for safety is checked, contact physician and document in the Physician Notification section below. Violent Behavior/Abuse History - Homicidal Ideation Do you have any homicidal thoughts? If so, explain:: No Is there a known potential victim? If yes, who:: No - Abuse Have you ever been abused?: No - Life Events Are there any other significant life events?: Financial loss, Hardships - Client's currently going through a separation. Client and her have not yet finalized their divorce., Loss of custody of child(aleena) - Client and currently going through a divorce and are doing shared parenting. However, client's comes to client's home on his days with the children. Describe significant life events: Separation, COVID, financial strain from separation, and client's ex- getting a new girlfriend. - Safety Do you ever feel threatened in your home? If yes, describe:: No Adult Social History - Age 19 to Present Describe your current support system:: For primary support she has friends and her mother. Substance Use - Substance Substance Use Type: Alcohol - She drinks about 2 alcoholic drinks per week., Other - Client admits to taking Percocet while driving to [place], but denies substance use outside of this time. No rehab ever. Leisure/Social Activities - Interests What do you enjoy or might be interested in learning about?: Client enjoys the beach, spending time with her boys, walking, and her pets. Education & Occupational Histo - Education What is your level of education?: Bachelor Degree - She did well in school and graduated high school and got a BA in college in communications. 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 Service - Service Have you ever been in the ?: No Legal History - Records Have you had any past legal charges?: No Do you have any current legal charges?: No Have you ever been incarcerated? If yes, describe:: No - Court Orders Have you had any past court orders for psychiatric treatment?: No Do you have a present court order for psychiatric treatment?: No Problem Checklist - Current Problem Areas Problem List: Nutritional/Eating pattern changes, Depressed mood/sad, Bereavement, Anxiety, Anger/aggression, Impulsivity, Pertinent health issues - She has had a tonsillectomy, ear tubes, cholecystectomy, appendectomy., Additional psychosocial stressors Discharge Planning Needs - Anticipated Follow-Up Mental Health Center (Name/Phone Number):: [facility] [phone] Private Therapist/Psychiatrist:: Ivy Chapman (real estate listing consultant) Community Agency Contacts: n/a [facility] Surgeon/General Dermatologist Name/Phone Number: n/a Senior Biostatistician/Group Leader's Assessment - Client's Needs What are the client's goals?: Client stated her goals for IOP are to learn healthy coping skills to help deal with her emotions better. Client wants to have stronger boundaries with her ex- and wants to be able to not let him control my emotions. What are the client's strengths?: Client is motivated, connected with outpatient mental health services, and has support from family and friends. Diagnoses - Diagnoses Diagnosis #1:: Major depressive disorder, recurrent, severe without psychosis Diagnosis #2:: generalized anxiety disorder Diagnosis #3:: rule out dependent personality traits Interpretive Summary - Interpretive Summary Interpretive Summary: Client is a 39-year-old female with a history of depression for the past year who was referred to the [facility] behavioral health program by her counselor. Client has been for 14 years and has been for 1 year. Client did not want the separation but her who is also a police aide initiated the separation and has a new girlfriend. On September 22, 2020, client had an argument with her and client became upset and grabbed one of his guns and left the house planning to drive to [place] to kill herself. Client called her after she got to [place] and he called the police. Family members who lived in [place] area came and stayed with client. The police took the gun from client, but client was not admitted to the psychiatric unit there. Client states that she feels much better now. However, while driving to [place] client took antihistamines, Percocet and alcohol while driving. The reason she did not kill herself is because she did not want to leave her children per her report. Client currently lives alone and has shared custody with her of her 12-year-old and 7-year-old sons. The guns are in a locked safe now that she does not have the kessler for. She works as an motorcoach driver and has had this job for 11 years and enjoys this job. She returned to work part-time a few days ago after missing work due to the above incidents. Client plans to continue working part-time until her mental health improves. Her biggest stress now she feels is her separation from her . For primary support she has friends and her mother. She endorses feeling hopelessness, occasional worthlessness, low motivation, and depressed mood. Client enjoys being with her sons but not much else. Client?s appetite was decreased but is improving in the past few days. Sleep is good at about 7 hours a night. Client feels fatigued during the day and her energy level is low. She feels her concentration is okay overall. Client does endorse feeling guilty over her recent actions. Client reports she is a worrier by nature and has been ruminating negatively. Client denies any suicidal ideation or passive thoughts of since September 222020. Client denies homicidal ideation, hallucinations or delusions, pb, panic attacks, OCD, eating disorder, trauma, PTSD, seizure or head trauma. Client does admit to a history of cutting and the most recent episode of cutting was on September 23, 2020, where she cut her thigh and arm superficially with a razor. Prior to that she had not cut herself since age 18. Client has family history of depression and alcoholism. Client denies any history of abuse. Treatment Plan Recommendations - Recommendations Guidelines: Special needs identified to be included in the development of an individualized treatment plan regarding past psychiatric history and treatment, developmental events, family relationships/events/culture, past and/or current educational, occupational, social, and residential experience, and legal status. Recommendations:: Client will start the IOP program at [facility] as the structure, support, education, and group therapy will hopefully prevent worsening of client?s symptoms which might require hospitalization. Client felt safe during the interview and if it anytime she does not feel safe she will let us know or go to the emergency room. The risks, options, possible complications, and side effects of the medications were discussed between client and [facility] psychiatrist. She agrees to increase her Wellbutrin XL to 300 mg p.o. every morning. Client will continue to follow-up with her outpatient psychiatric and medical providers. Client was also encouraged to join a divorce support group to help process emotions and gain peer support.
--- NOTE | 2020-10-10 09:01 | BH.SGPN.GN ---
Behaviors/Verbalizations/Mental Status: []Client alert and oriented, casually dressed. Eye contact good. Motor activity appropriate. Speech within normal limits. Affect congruent, mood anxious and dysthymic. Thoughts linear, logical, no signs of hallucinations or delusions. Reviewed client?s symptom tracker, no risk or thoughts of suicide ideation, plan, or intent as of 10/10/20. Client Response/Progress/Benefit: []Client responded well to session, engaged throughout and participated in group discussion. Client reported feeling ?hopeful? this morning. Client reported being able to spend quality 1-on-1 time with her oldest son yesterday and reported feeling calmer and more positive as a result. Discussed struggling when returning home as her estranged was there for visitation with their children. Client noted that his presence in the home is often a trigger and that she would like him to have visitation elsewhere but has not yet communicated this. Client reflected that although he is a trigger, she did well not to engage with him and instead focused on other things. Noted this helped to distract her as well as practiced using positive self-talk statements such as ?I don?t have to feed into this, I can focus on what I need right now?. Benefited from support provided by group members. Will continue IOP to promote the use of healthy coping skills, improve daily functioning, and improve ability to set appropriate boundaries. Narrative Note: []
--- NOTE | 2020-10-10 10:05 | BH.SGPN.GN ---
Behaviors/Verbalizations/Mental Status: []Client alert and oriented, neatly dressed and groomed. Eye contact good. Motor activity appropriate. Speech within normal limits. Affect constricted, mood depressed. Thoughts linear, logical, no signs of hallucinations or delusions. Client Response/Progress/Benefit: []Pt was an active participant in group discussion and was attentive during psychoeducation. Provided input on the quote of the day and connected that negative experiences can lead to increased negative thinking. Group was primarily educational and introduced and gave examples of the 10 cognitive distortions. Pt provided some examples of personal experiences for certain cognitive distortions. Pt connected with jumping to conclusions, overgeneralizing, and labeling. Pt shared an example negative thought of ?I?m a failure because my marriage ended.? Benefited from education and increased awareness of cognitive distortions and role that they play in negative thoughts and emotions. Will continue IOP tx to prevent decompensation, improve mood stability, and improve functioning. Narrative Note: []
--- NOTE | 2020-10-10 11:05 | BH.SGPN.GN ---
Behaviors/Verbalizations/Mental Status: []Client alert and oriented, neatly dressed and groomed. Eye contact good. Motor activity appropriate. Speech within normal limits. Affect constricted, mood depressed. Thoughts linear, logical, no signs of hallucinations or delusions. Client Response/Progress/Benefit: []Client was an active participant AEB client providing input throughout session and completing worksheet. Client attentive during psychoeducation and additional discussion on cognitive distortions. Client engaged while group practiced reframing example thoughts on the board. Client then worked to identify, label, and reframe a distorted thought of her own. Client used the thought ?I?m not good enough as a mom, friend, or daughter.? Client labeled this as the all or nothing thinking distortion and stated it makes client tired, anxious, and feel like a failure. Client reframed this thought to ?actually my kids are healthy and smart. My mom loves me and counts on me.? Client seemed to benefit from practicing identifying and reframing distorted thoughts. Will continue IOP tx to prevent decompensation, learn healthy coping skills, and increase self-awareness. Narrative Note: []
== END 2020-10-11 23:59 ==
LOC: BHIOP 09:00
PROVIDERS: PCP Family Medicine; Referring Provider Psychiatry & Neurology Psychiatry; Visit Provider Psychiatry & Neurology Psychiatry
DX: F33.2 Major depressive disorder, recurrent severe without psychotic features (principal); F41.1 Generalized anxiety disorder; Z79.899 Other long term (current) drug therapy; K21.9 Gastro-esophageal reflux disease without esophagitis
CPT/HCPCS: H0035; 90853

== ENCOUNTER 2020-10-15 09:00 | Outpatient (RCR) | payer BC, SELFPAY ==
[2019-10-04 06:15] VITALS: BMI 42.3
[2020-10-12 00:59] VITALS: BP 135/95; PULSE 80
--- NOTE | 2020-10-15 09:05 | BH.SGPN.GN ---
Behaviors/Verbalizations/Mental Status: []Client alert and oriented, neatly dressed and groomed. Eye contact good. Motor activity appropriate. Speech within normal limits. Affect constricted, mood depressed. Thoughts linear, logical, no signs of hallucinations or delusions. Reviewed client?s symptom tracker, no risk for suicidal ideation, plan, or intent as of 10/15/20 Client Response/Progress/Benefit: []client responded well to session, engaged and participating. Client reports feeling disconnected and guilty this morning. Client shared I did really well this weekend until yesterday as client reports she spiraled and went down a bad path of coping. Client shared she can become emotional reactive with her ex- which often leads to guilt. Client able to give herself credit for practicing self-care, jounraling, and not having any suicidal thoughts this weekend. Receptive to feedback on overcoming guilt. Appeared to benefit from gaining feedback and reflecting on her application of coping skills. Will continue IOP tx as client continues to struggle with mood instability, managing emotions, and challenging negative thinking. Narrative Note: []
--- NOTE | 2020-10-15 11:10 | BH.SGPN.GN ---
Behaviors/Verbalizations/Mental Status: []Client alert and oriented, neat and casually dressed and groomed. Eye contact good. Motor activity appropriate. Speech within normal limits. Affect congruent, mood depressed and anxious. Thoughts linear, logical, no signs of hallucinations or delusions. Client Response/Progress/Benefit: []Client receptive of session, engaged throughout AEB client actively listening and contributing to discussion, as well as taking notes. Client completed worksheet identifying personal pitfalls impacting mental health progress. Client shared she is currently struggling with negative thoughts, emotion regulation, and limited awareness. Attentive during group brainstorm of strategies to overcome pitfalls. Client will work on overcoming her pitfall of lack of awareness by continuing regular therapy and beginning journaling to reflect on her mental health warning signs and triggers. Benefited from identifying personal pitfalls and strategies to overcome these pitfalls. Will continue IOP tx to maintain mood stability, promote healthy change behaviors, and prevent decompensation. Narrative Note: []
--- NOTE | 2020-10-15 11:31 | BH.MDN ---
Multi-Disciplinary Note - Note 45-min Individual Time Started:: 10:32 Date: 10/15/20 Purpose of session/treatment goals addressed:: The purpose of this session was to gather information on client's current stressors, symptoms, and treatment goals. Another goal was to build rapport and provide psychoeducation. Eye Contact:: Good Motor Activity:: Appropriate Appearance:: Casual Speech:: Appropriate Mood:: Dysthymic Affect:: Constricted Thoughts:: Linear, Logical Staff Interventions:: Therapist used active listening and open-ended questions to explore client's current stressors, symptoms, and treatment goals. Therapist used strengths perspective to build rapport and provide emotional support. Therapist provided psychoeducation on maintainance cycles, healthy vs unhealthy relationships, and coping skills. Client Response:: Client responded well to session, open to meeting with therapist. Client reported her mental health became worse following a separation from her last year. Client shared she and her have had problems in the past, but she felt blindsided by his desire to separate. Client shared she is sad, angry, and confused about the separation because I didn't want this. Client stated her goals for IOP are to learn healthy coping skills to help deal with her emotions better. Client wants to have stronger boundaries with her ex- and wants to be able to not let him control my emotions. Client stated she and her ex- have been trying to co-parent, but he has not been respecting the expectations/boundaries client put in place. This leads client to feeling angry and confused sharing he's lingering around me but he wanted to leave. Client explored her ideal boundaries between her and ex as well as current ways she tommy. Client stated an unhealthy way she tommy is by sending her ex- texts when she is upset. Discussed the consequences that follow and client was willing to explore healthier options. Client learned DDD (delay, distract, decide) and was willing to write out the consequences of texting her ex-. Client believes this will help her avoid contacting him. Risks/Concerns:: Client denies any suicidal ideations, plan, or intent as of 10/15/20. Protective factors and future oriented. Progress Toward Goals/Plan:: Client recently started IOP tx and appears to be responding well. Client reports the group topics have been helpful and she has learned a lot. Client's SI has significantly decreased and no longer reports any suicidal ideations. Client's biggest stressor is the recent separation from her and figuring out how to co-parent with healthy boundaries. Client endorses a depressed mood, lack of energy, lack of motivation, ruminations, anger, sadness, and difficulty with acceptance. Client will continue IOP tx to improve functioning, increase self-confidence, and learn healthier ways to cope. Time Stopped:: 11:17
--- NOTE | 2020-10-16 09:00 | BH.SGPN.GN ---
Behaviors/Verbalizations/Mental Status: [] Eye contact is good. Motor activity is appropriate. Appearance is casual. Speech is Appropriate. Mood is depressed. Affect is flat. Thoughts are linear and logical. No evidence of psychosis. Reviewed daily check in sheet and no reports of suicidal ideations or intent. Client Response/Progress/Benefit: [] Pt was an active participant in group discussion. Attentive. Provided appropriate feedback. Emotion for today is grateful. Shared some recent stressors including anniversary of a and a very difficult discussion with about divorce and assets. Pt states I started to spiral. Reports crying spells, rumination, and a meltdown. She did utilize skills such as journaling and thought reframing. She was proud of herself noting that in the past her meltdown would have last hours however yesterday it was 10-15 minutes. Progress noted per pt report. Benefited from group support, encouragement, and feedback. Will continue in IOP to maintain safety, increase healthy coping, and prevent decompensation. Narrative Note: []
--- NOTE | 2020-10-16 10:05 | BH.SGPN.GN ---
Behaviors/Verbalizations/Mental Status: []Eye contact is good. Motor activity is appropriate. Appearance is neat and casual. Speech is Appropriate. Mood is dysthymic. Affect is congruent. Thoughts are linear and logical. No evidence of psychosis. Client Response/Progress/Benefit: []Pt was an active participant in group discussion and activity. Attentive and provided input during discussion on benefits and examples of healthily social supports. Client identified her family and herself as supports. Noted importance of internal supports such as self-compassion in maintaining a strong support system. Group noted benefits of strong social supports as: feel less alone, hold us accountable, provide different perspective, encouragement, and help us through providing a skill or insight we might not. Client engaged in discussion on barriers to using support system. Identified a personal barrier to using her supports as feeling she has few healthy supports as well as fear they will hold her accountable. Able to see the impact of support and its benefits during activity and challenges of accomplishing tasks w/o proper support. Benefited from awareness of barriers to support as well as importance of support in mental health wellness. Narrative Note: []
--- NOTE | 2020-10-16 11:07 | BH.SGPN.GN ---
Behaviors/Verbalizations/Mental Status: []Client alert and oriented, neatly dressed and groomed. Eye contact good. Motor activity appropriate. Speech within normal limits. Affect constricted, mood euthymic. Thoughts linear, logical, no signs of hallucinations or delusions. Client Response/Progress/Benefit: []Client an active participant throughout AEB contributing to discussion, taking notes, and providing supportive feedback. Client participated in the group activity highlighting the various barriers to effectively utilizing supports and strategies the group used. Client participated in discussion of the four types of support (emotion, tangible, informational, and social) and the group listed examples for all types. Client reports wanting to work on increasing emotional support through counseling, family, and protestant. Client stated this will help client increase self-worth, process emotions better, and stay grounded. Client plans to do this by being vulnerable and reaching out as well as removing herself from toxic situations. Client seemed to benefit from identifying the type of support client wants to improve. Will continue IOP tx to improve mood stability, reduce negative thinking, and increase healthy boundaries. Narrative Note: []
--- NOTE | 2020-10-17 09:00 | BH.SGPN.GN ---
Behaviors/Verbalizations/Mental Status: [] Eye contact is good. Motor activity is appropriate. Appearance is casual. Speech is Appropriate. Mood is depressed. Affect is flat. Thoughts are linear and logical. No evidence of psychosis. Reviewed daily check in sheet and no reports of suicidal ideations or intent. Client Response/Progress/Benefit: [] Pt was an active participant in group discussion on short videos on empathy and negative thoughts. Attentive. Provided appropriate feedback. Emotion for today is frustrated. Mental health win was utilizing skills to overcome stressors and depression yesterday. Finding healthy ways to manage emotions which has decreased severity and intensity of depression. Shared her stressors and how they impacted her mood and functioning. Admits that depression still remains significant however increased confidence in her ability to manage and stop rumination. Journalling before bed which has helped with sleep. Progress noted per pt report. Benefited from group discussion and support. Will continue in IOP to maintain safety, stabilize mood, and increase healthy coping skills. Narrative Note: []
--- NOTE | 2020-10-17 10:00 | BH.SGPN.GN ---
Behaviors/Verbalizations/Mental Status: [] Eye contact is good. Motor activity is appropriate. Appearance is disheveled. Speech is Appropriate. Mood is depressed. Affect is flat. Thoughts are linear and logical. No evidence of psychosis. Client Response/Progress/Benefit: [] Pt was an active participant in group discussion. Attentive during psychoeducation on different types of anxiety disorders. Along with peers provided insight on the definition of anxiety as well as the impact of anxiety which include; poor sleep, not completing tasks, poor concentration, impacts relationships, impacts work, and decreases appetite. Pt identified her physical symptoms of anxiety which are acid reflux, crying, and racing heart. Worked with peers to identify safety behaviors which included avoidance, self-harm, distraction, lashing out, and substance use. Benefited from increased insight and awareness from group discussions. Will continue in IOP to maintain safety and to stabilize mood. Narrative Note: []
--- NOTE | 2020-10-17 11:15 | BH.SGPN.GN ---
Behaviors/Verbalizations/Mental Status: []Client alert and oriented, casually dressed and groomed. Eye contact fair. Motor activity appropriate. Speech within normal limits. Affect constricted, mood anxious. Thoughts linear, logical, no signs of hallucinations or delusions. Client Response/Progress/Benefit: []Client was an active participant AEB pt providing input and listening attentively to peers. Reviewed anxious thoughts and safety behaviors client engages in that reinforce anxiety. Identified personal safety behaviors to include: lashing out, sleeping, shutting down, alcohol, shopping, over schedule, listening to sad music, and distraction. Attentive during psychoeducation on mindfulness coping skills and their impact on mental health wellness. Group was able to identify self-soothing and mind-based coping skills which included: 5-senses, meditation, deep breathing, journaling, and body scan. Client would like to work on calming skill of walking. Appeared to benefit from increasing repertoire of anxiety reduction skills. Client will continue IOP tx to increase healthy coping skills, improve mood stability, and prevent decompensation. Narrative Note: []
--- NOTE | 2020-10-22 09:02 | BH.SGPN.GN ---
Behaviors/Verbalizations/Mental Status: []Pt eye contact good, casually dressed, motor activity appropriate, speech normal rate and tone, mood anxious, congruent affect, thoughts linear and intact, no evidence of delusions or hallucinations. Patient indicated no suicidal ideation, plan or intent on daily symptom tracker. Client Response/Progress/Benefit: []Patient engaged participant as evidenced by sharing thoughts and feelings and listening attentively to peers. Patient reported and Wednesday she had a really good days. Patient stated on Wednesday she had a difficult time because it was triggered and the second game by another parent because it appeared that the parent was talking about her sense that person knows patient's ex. patient reported she did not use her healthy skills and instead lashed out at her ex via text. Patient expressed feeling frustration with herself for not using her healthy skills. With assistance from therapist patient able to identify that she did have a lot of positive moment throughout her weekend and has been letting out one bad moment with her ex to overshadow her entire weekend. Patient seen to benefit from perspective being challenged. Progress noted with utilizing healthy coping skills like journaling and challenging negative thoughts. Patient to continue IOP to improvement emotional regulation, challenge distorted thought patterns, and prevent decompensation. Narrative Note: []
--- NOTE | 2020-10-22 10:10 | BH.SGPN.GN ---
Behaviors/Verbalizations/Mental Status: []Eye contact is good. Motor activity is appropriate. Appearance is casual. Speech is Appropriate. Mood is anxious, dysthymic. Affect is constricted. Thoughts are linear and logical. No evidence of psychosis. Client Response/Progress/Benefit: [] Pt was an engaged participant in group discussions and activity, remaining a mostly passive participant throughout. Expressed agreement as group processed quote, noting the importance of identifying small wins to further promote motivation to work on goals moving forward. Worked with group members to identify the benefits of setting goals which include: sense of accomplishment, builds self-esteem, increases motivation, holds us accountable, and helps to measure progress. Worked with peers to identify the barriers to setting goals or things that keep us from accomplishing goals. Pt identified personal barrier to achieving goals as telling herself that they are ?too hard? or she is unable to accomplish them. Attentive during psycho-education on developing SMART (Specific, Measurable, Achievable, Realistic, Timely) goals. Benefited from education on the benefits of goal-setting and increased insight into skills to set realistic and attainable goals. Narrative Note: []
--- NOTE | 2020-10-22 11:10 | BH.SGPN.GN ---
Behaviors/Verbalizations/Mental Status: []Client alert and oriented, neatly dressed and groomed. Eye contact good. Motor activity appropriate. Speech within normal limits. Affect constricted, mood anxious. Thoughts linear, logical, no signs of hallucinations or delusions. Client Response/Progress/Benefit: []Client was engaged during discussion, did well to complete activity and process with the group. Client was willing to complete the worksheet in which she was challenged to develop a personal SMART goal. Client chose the goal to stay present by using calming skills twice a day for three days over the next week. Client stated this will benefit her as it will reduce stress and keep client in the present moment. Client identified barriers which included: making time, negative self-talk, lack of motivation, and excuses. Client worked with her partner in group to identify solutions for her barriers, and they were able to identify a solution for each barrier. Benefited from this group by developing a short-term SMART goal related to mental health. Client will continue IOP tx to promote the use of healthy coping skills, increase self-esteem, and combat cognitive distortions. Narrative Note: []
--- NOTE | 2020-10-23 10:10 | BH.SGPN.GN ---
Behaviors/Verbalizations/Mental Status: []Client alert and oriented, neatly dressed and groomed. Eye contact good. Motor activity appropriate. Speech within normal limits. Affect constricted, mood dysthymic. Thoughts linear, logical, no signs of hallucinations or delusions. Client Response/Progress/Benefit: []Client engaged participant AEB listening to peers and providing to discussion. Client commented on the quote as well as unhealthy coping skills. Client gave examples of unhealthy coping skills and shared that when she lashes out at others ?it?s easier because it?s something I?m used to.? Client stated using unhealthy coping skills often leads to negative self-talk. Group shared that people tend to use unhealthy coping skills because they are easier and provide quick relief. Client participated in the group activity and connected that a healthy foundation of coping skills is composed of healthy internal and external coping skills. Client seemed to benefit from increased awareness of the importance of increasing healthy coping skills and consequences of utilizing unhealthy coping skills. Will continue IOP tx to increase mood stability, improve emotional regulation skills, and combat distortions. Narrative Note: []
--- NOTE | 2020-10-23 10:58 | BH.MDN_ITS ---
Multi-Disciplinary Note - Note 45-min Individual Time Started:: 09:04 Date: 10/23/20 Purpose of session/treatment goals addressed:: To address current symptoms, stressors, and application of coping skills. Another goal was to work on thought challenging and boundary setting. Eye Contact:: Good Motor Activity:: Appropriate Appearance:: Casual Speech:: Appropriate Mood:: Euthymic Affect:: Congruent Thoughts:: Linear, Logical, No evidence of hallucinations/delusions noted Staff Interventions:: Therapist explored client's current stressors, symptoms, and application of coping skills. Also helped client identify cognitive distortions that reinforce depression and self-doubt. Therapist helped client reflect on expectations for boundaries, mixed emotions, and maintenance cycles. Therapist and client came up with self-care homework. Client Response:: Client responded well to session, open to meeting with therapist. Client shared she has been doing better and has had limited setbacks when communicating with her ex. Client did admit to an anger outburst this weekend, but she was able to stop herself and break the maintenance cycle. Client shared she continues to struggle with accepting her current reality and client feels a lot of resentment. Client also continues to blame herself and her ex-. Client has been trying to set healthy boundaries, but shared her ex- invalidates these and then client questions herself. Client recognizes that she would tell a friend the boundaries are appropriate, but client is used to being manipulated by her . Discussed journaling ideas to help client reflect on her needs, what she wants for healthy boundaries, and to identify if her reactions match the size of the problem. Also discussed client's desire to increase physical activity and self-care. Client's goal is to walk twice a week for 30 minutes. Risks/Concerns:: Client denies any suicidal ideations, plan, or intent as of 10/23/20. Client reports overall improvements in mood and is future oriented. Progress Toward Goals/Plan:: Client continues to respond well to tx AEB self- report of applying coping skills and overall improved mood. Client reports the group topics have been helpful and she has been journaling which has helped. Client?s biggest stressor continues to be navigating all the changes, new boundaries, and emotions that come from from her . Client endorses a depressed mood, lack of self-confidence, lack of motivation, ruminations, anger that is decreasing, sadness, and difficulty with acceptance. Client will continue IOP tx to improve functioning, increase self-confidence, and reinforce healthy boundaries. Time Stopped:: 09:55
--- NOTE | 2020-10-23 11:12 | BH.SGPN.GN ---
Behaviors/Verbalizations/Mental Status: [] Client alert and oriented, casually dressed and groomed. Eye contact good. Motor activity appropriate. Speech within normal limits. Affect congruent, mood euthymic. Thoughts linear, logical, no signs of hallucinations or delusions Client Response/Progress/Benefit: [] Client responded well to session, taking notes and contributing throughout. Group discussed the different categories of coping skills which included distraction, emotional release, grounding, self-love, and thought challenging. ?Client participated in creating a coping skills ?menu? from the five categories of coping skills. Client's coping skill menu included: walking, journaling, 5-senses skill, self-compassion, and positive self-talk. Reports wanting to specifically work on using walking as a means of healthy distraction. Appeared to benefit from increasing repertoire of healthy coping skills. Will continue tx to further improve daily functioning, improve mood stability, and increase self-compassion. Narrative Note: []
--- NOTE | 2020-10-24 09:00 | BH.SGPN.GN ---
Behaviors/Verbalizations/Mental Status: []client alert and oriented, neatly dressed and groomed. Eye contact good. Motor activity appropriate. Speech within normal limits. Affect congruent, mood euthymic. Thoughts linear, logical, no signs of hallucinations or delusions. Reviewed client's symptom tracker, no SI, plan, or intent as of 10/24/20. Client Response/Progress/Benefit: []Client responded well to session, attentive and engaged. Client reports feeling content this morning. Client shared she had a good day yesterday as client was productive, but also asked for help. Client reported she journaled, mowed, and spent time with her mother. Client has been trying to practice healthy coping skills on a more consistent basis. Client's stressor today is that she and her ex- continue to have conflict which makes seeing each other difficult. Appeared to benefit from reflecting on wins and connecting with supports. Progress noted in client's report of using coping skills and opposite action. Will continue IOP tx as client continues to struggle with regulating emotions and conflict. Narrative Note: []
--- NOTE | 2020-10-24 10:10 | BH.SGPN.GN ---
Behaviors/Verbalizations/Mental Status: [] Eye contact is good. Motor activity is appropriate. Appearance is casual. Speech is Appropriate. Mood is euthymic. Affect is full. Thoughts are linear and logical. No evidence of psychosis. Client Response/Progress/Benefit: [] Pt was an active participant in group discussion and activity. Attentive during psychoeducation. Provided appropriate feedback. Pt along with peers were able to identify common emotions (both positive and negative) associated with change. Group was able to identify the benefits to making changes such as; personal growth, increased self-esteem, improve mindset, decrease stress, improve emotional health, increase healthy skills, and to get out of same old challenges. Pt and peers were also able to identify some obstacles to making changes which included; low motivation, lack of support, difficult to get out of comfort zone, fear of change, fear of the unknown, fear of repeating past, vulnerability, and asking for help. Pt benefited from group by increasing awareness of emotions and obstaceles associated with making changes. Pt will continue in IOP to maintain safety, increase healthy coping, and stabilze mood. Narrative Note: []
--- NOTE | 2020-10-24 11:15 | BH.SGPN.GN ---
Behaviors/Verbalizations/Mental Status: []Client alert and oriented, neatly dressed and groomed. Eye contact good. Motor activity appropriate. Speech within normal limits. Affect congruent, mood anxious. Thoughts linear, logical, no signs of hallucinations or delusions. Client Response/Progress/Benefit: []Client responded well to session AEB providing input at times during discussion, engaging in activity, and listening attentively to peers. Client contributed during psychoeducation on the change process and different emotions in each stage of change. Client reports belief she is currently in between preparation and action stages of change. Client stated she feels closer to action stage because she has made some changes in how she reacts to situations. Client stated continuing therapy, asking for hep and using healthy coping skills consistently will help her get to action stage. Appeared to benefit from identifying what stage of change client is in and identifying strategies to overcome barriers. Will continue IOP tx to continue use of healthy coping skills, increase confidence and prevent decompensation.
--- NOTE | 2020-10-29 09:00 | BH.SGPN.GN ---
Behaviors/Verbalizations/Mental Status: [] Pt eye contact good, casually dressed, motor activity appropriate, speech normal rate and tone, mood anxious and dysthymic, congruent affect, thoughts linear and intact, no evidence of delusions or hallucinations. Patient indicated no suicidal ideation, plan or intent on daily symptom tracker. Client Response/Progress/Benefit: [] Patient receptive of session, engaged throughout AEB sharing thoughts and feelings with group. Identified emotion for the day as ?frustrated but trying to work through it?, noting this is due to experiencing difficult emotions over the weekend. Client discussed that she has been struggling to adjust to being and still seeing her ex- regularly as they have children together. Explained that she often feels sad and misses the relationship when seeing everyone together, despite acknowledging that there were several issues within the marriage that made it unhealthy. Able to identify personal progress as she used several healthy coping and self-care skills to manage her difficult and conflicting emotions throughout the weekend. Shared journaling, taking a warm shower, and asking her mom for help with a project. Able to identify areas of personal progress. Appeared to benefit from supportive group environment. Patient to continue IOP to promote healthy change behaviors, continue to improve sx management and mood stability, and prevent decompensation. Narrative Note: []
--- NOTE | 2020-10-29 10:20 | BH.SGPN.GN ---
Behaviors/Verbalizations/Mental Status: []Client alert and oriented, neatly dressed and groomed. Eye contact good. Motor activity appropriate. Speech within normal limits. Affect congruent, mood euthymic. Thoughts linear, logical, no evidence of hallucinations or delusions. Client Response/Progress/Benefit: []Client responded well to session, attentive and contributing to discussion. Client worked cooperatively with the group to identify factors that contributed to how we define ourselves which included: upbringing, core beliefs, trauma, social media, past failures, and mental health. Group defined and discussed social and perceived stigma. Client reported she has experienced the impacts of perceived and social mental health stigma. Client shared the example of society labeling those with mental illness as ?outcasts? or having a ?catchable disease.? Client seemed to benefit from increased awareness of how mental health stigma can impact view of self. Client to continue IOP tx to further improve mood stability, increase healthy boundaries, and reduce negative thinking. Narrative Note: []
--- NOTE | 2020-10-29 11:15 | BH.SGPN.GN ---
Behaviors/Verbalizations/Mental Status: []Client alert and oriented, casually dressed, hygiene appeared to be tended to. Eye contact fair. Motor activity appropriate. Speech within normal limits. Affect constricted, mood anxious. Thoughts linear, logical, no signs of hallucinations or delusions. Client Response/Progress/Benefit: []Client engaged participant AEB pt providing input during discussion, taking notes and listened attentively to peers. Client worked with group to identify what mental stigma has prevented them from doing. Group brainstormed strategies to combat social and perceived stigma which included: educating others, no longer joking about mental illness , being open about mental health, self-compassion and not reinforcing stigma with behaviors or labels. Client stated she will attempt to decrease perceived stigma by asking for help more often on a daily basis to give self time to engage in self-care. Appeared to benefit from increasing awareness of strategies to combat stigma. Will continue IOP tx to continue use of healthy coping, challenge distorted thoughts and prevent decompensation. Narrative Note: []
--- NOTE | 2020-10-30 10:10 | BH.SGPN.GN ---
Behaviors/Verbalizations/Mental Status: []Client alert and oriented, casually dressed and groomed. Eye contact fair. Motor activity appropriate. Speech within normal limits. Affect constricted. Mood dysthymic. Thoughts linear, logical, no signs of hallucinations or delusions. Client Response/Progress/Benefit: []Pt responded well to session AEB pt providing input and listening attentively to peers. Worked with group to identify external barriers that can keep us stuck include: intrusive thoughts, anxiety, outside stressors, past trauma, environment, work place, and mental health. Worked with group to identify internal barriers that keep us stuck include: fear of failure, avoidance, negative self-talk, shut down, avoidance, sleep, using substances, and other unhealthy coping skills. Attentive to discussion about underlying thoughts behind what keeps people stuck. Pt shared negative thoughts she has that negatively impact her include: I'm a loser, I'm a burden, and what's the point. Pt seemed to benefit from increased awareness of maintenance cycles. Pt to continue IOP to continue use of healthy coping, challenge distorted thoughts and prevent decompensation. Pt to continue IOP to continue use of healthy coping, challenge distorted thoughts and prevent decompensation. Narrative Note: []
--- NOTE | 2020-10-30 11:15 | BH.SGPN.GN ---
Behaviors/Verbalizations/Mental Status: []Client alert and oriented, neatly dressed and groomed. Eye contact good. Motor activity appropriate. Speech within normal limits. Affect constricted, mood euthymic. Thoughts linear, logical, no signs of hallucinations or delusions. Client Response/Progress/Benefit: []Client responded well to session, contributing to discussion and providing good feedback. Client appeared to connect with maintenance cycles and recognized how negative thinking can keep a person stuck. Client identified a negative thought that has kept client stuck. Client shared going through the program has helped client be more mindful of distorted thoughts. Client?s negative thought was ?no one cares about me.? Client acknowledges this thought is unrealistic and leads to isolation, lashing out, and pushing people away. Client reframed this thought to ?I am beautiful inside and out and my family and boys care about me.? Client shared thought challenging helps client shorten the length of time she is depressed and makes client more positive. Client appeared to benefit from practicing challenging negative thinking. Will continue IOP tx to further reduce guilt, improve mood stability, and reinforce healthy coping skills. Narrative Note: []
--- NOTE | 2020-10-30 12:09 | PCM.BH.PN ---
Progress Note Progress Note: History of Present Illness/Interim History: [] The patient is a 39-year-old female who is seen in follow-up at the [facility] behavioral health IOP program. I last saw the patient 2-1/2 weeks ago and at that time the Wellbutrin XL dose was increased to 300 mg p.o. every morning. She states that she feels better in the past few days since increasing the dose of Wellbutrin. She feels she is doing well and is her energy level is much better now. She is much less tired than she was before. She also feels that she is more motivated and is getting more done at home and at work. Work is going okay but she did miss a few days in the past 2 weeks. She still has occasional crying episodes and then feels some passive fleeting suicidal ideation but denies anything that lasts more than less than an hour. These episodes resolve quickly. She denies any cutting or thoughts of self-harm. Sleep remains good at about 7 hours a night. She denies passive thoughts of , thoughts of self-harm, suicidal or homicidal ideation, hallucinations or delusions. Current Psychiatric Medications: [] Celexa 40 mg p.o. daily (x1 year); Wellbutrin XL 300 mg p.o. every morning (dose increased 2 weeks ago, on this for about 6 weeks total.) Mental Status Examination: [] Patient is a 39-year-old female who appears normal for stated age and is seen wearing a mask due to the pandemic. She is casually dressed and groomed with good hygiene. She has no psychomotor agitation or retardation. Eye contact is good and speech is normal rate and rhythm and fluent with no pressure. Mood is mildly depressed to euthymic. Affect is full and normal. Thought process is goal-directed and organized. Thought content: Not there is no evidence of thoughts of , suicidal or homicidal ideation, hallucinations or delusions or thoughts of self-harm. Judgment is intact. Insight: Some present. Impulsivity: Moderate. Diagnoses: [] Camak I: [] Major depressive disorder, recurrent, severe without psychosis; generalized anxiety disorder Camak II: [] Deferred, rule out dependent traits. Camak III: [] Negative Camak IV:[]] Primary support issues Plan: [] The patient will continue the IOP program as the structure, education, support, group therapy will hopefully prevent worsening of the patient's symptoms. She felt safe during the interview and if it anytime she does not feel safe she will let us know or go to the emergency room. The risks, options, possible complications and side effects of the medications were again discussed with the patient and she understands and accepts these. She will continue her medications at their current doses and no medication changes were made today. A refill was sent in for these 300 mg of Wellbutrin XL. She will continue to follow-up with her outpatient psychiatric and medical providers.
--- NOTE | 2020-10-30 14:08 | BH.MDN ---
Multi-Disciplinary Note - Note 45-min Individual Time Started:: 09:25 Date: 10/30/20 Purpose of session/treatment goals addressed:: To combat distorted thoughts that reinforce guilt and self-doubt. Another goal was to discuss progress towards goals and to review healthy boundaries. Eye Contact:: Good Motor Activity:: Appropriate Appearance:: Neat Speech:: Appropriate Mood:: Euthymic Affect:: Constricted Thoughts:: Linear, Logical, No evidence of hallucinations/delusions noted Staff Interventions:: Therapist used active listening and provided emotional support. Therapist also used cognitive restructuring techniques to help client catch and combat thoughts that reinforce inappropriate guilt. Therapist used motivational interviewing and helped client establish a plan to set healthy boundaries. Therapist gave client a handout to read regarding the stages of grief one can experience during divorce. Client Response:: Client responded well to session, open to meeting with therapist. Client reports she is doing better today, but client felt like she had some setbacks recently. Client shared she lashed out at her ex- and then later went to apologize, but it did not go well. Client shared she was able to challenge her perspective and use self-compassion with the help of her supports. Client stated a friend helped validate client's emotions and response. Discussed the stages of grief and how healing is a process. Client also gained awareness that one of her barriers to acceptance is that there is still enmeshment with her ex-. Client shared it is hard for her and her boys to move towards a new normal because client's ex- has his visitation at client's house. Client shared she plans to reinforce new expectations and boundaries to support a new normal within the next few weeks. Client receptive to journaling about what will help client stick to these boundaries. Also discussed appropriate versus inappropriate guilt and client able to combat thoughts that reinforce inappropriate guilt. Client also shared she plans to walk more this week to help regulate her emotions. Risks/Concerns:: Client denies any suicidal ideations, plan, or intent as of 10/30/20. Future oriented and continues to be motivated. Progress Toward Goals/Plan:: Client continues to respond well to tx AEB her self-report of improved energy, reduced depressive symptoms and passive SI, and increased motivation. Client?s attendance continues to be consistent and she is highly engaged during sessions. Client can continue to work on reducing inappropriate guilt, negative thinking, crying spells, and irritability. Client is also working on increasing self-confidence so she can set healthier boundaries with her ex-. Time Stopped:: 10:05
--- NOTE | 2020-10-31 09:00 | BH.SGPN.GN ---
Behaviors/Verbalizations/Mental Status: [] Eye contact is good. Motor activity is appropriate. Appearance is casual. Speech is Appropriate. Mood is depressed. Affect is flat. Thoughts are linear and logical. No evidence of psychosis. Reviewed daily check in sheet and no reports of suicidal ideations or intent. Client Response/Progress/Benefit: [] Pt was an active participant in group discussion. Attentive. Provided appropriate feedback. Emotion for today is mellow. Mental health win was that she was productive yesterday. Accomplished a great deal of tasks. Shared stressors regarding interactions with her ex which from her perspective are not helpful. After talking her her ex it often leads to anger and depression and ultimately breakdowns. She shared with the group her perspective and thoughts. She reports that in the past her breakdowns would last hours to all day however currently they are significantly reduced. I understand that I cannot make him feel things or do certain things and I have to accpet that. She also had insight that she can only change things that she has control over. These thoughts are helping her minimize her ruminations. Progress noted per pt report. Benefited from group support, encouragement, and feedback. Will continue in IOP to maintain safety, increase healthy coping skills, and prevent decompensation. Narrative Note: []
--- NOTE | 2020-10-31 10:10 | BH.SGPN.GN ---
Behaviors/Verbalizations/Mental Status: []Client alert and oriented, casually dressed and groomed. Eye contact good. Motor activity appropriate. Speech within normal limits. Affect constricted, mood agitated. Thoughts linear, logical, no signs of hallucinations or delusions. Client Response/Progress/Benefit: []Pt was an active participant in group discussion and completed group worksheet. Provided appropriate feedback and shared she struggles with managing anger. Group worked together to define anger and discussed the ways anger can impact one internally and externally. Pt reported that anger can be triggered by internal thoughts/feelings or external situations. Pt completed the iceberg exercise and identified emotions that tend to ?live under the surface? of anger. Pt also gained awareness of her typical responses to anger which included: crying, getting defensive, having a negative attitude, lashing out, using hurtful language, and hitting things. Pt acknowledges that feeling resentful, lonely, and disappointed often come out as anger. Benefited from group by increasing understanding of the impact of anger on mental health. Will continue IOP tx to promote the use of healthy coping skills, reduce inappropriate guilt, and improve emotional regulation skills. Narrative Note: []
--- NOTE | 2020-10-31 11:12 | BH.SGPN.GN ---
Behaviors/Verbalizations/Mental Status: []Client alert and oriented, neat and casually dressed and groomed. Eye contact good. Motor activity appropriate. Speech within normal limits. Affect congruent, mood euthymic. Thoughts linear, logical, no signs of hallucinations or delusions. Client Response/Progress/Benefit: []Pt was engaged throughout AEB participating in challenge activity and processed with group how skills used in activity could relate back to healthy skills for anger management in daily life. Contributed as group brainstormed healthy coping skills for better managing anger which included: music, exercise, changing the temperature and environment, art, STOPP, and journaling. Pt provided several personal examples of calming skills and shared she often types letters out to vent without sending them. Pt appeared to benefit from identifying different techniques to manage anger as well as gaining awareness of potential consequences of unmanaged anger. Pt selected the humor and refocusing on positives as coping skills she would like to try to better regulate anger. Progress noted as pt reports increased self-talk, improved emotion regulation, and increased self-care. Will continue IOP tx to promote the continued use of healthy coping skills, improve consistent mood stability, and further decrease negative thinking. Narrative Note: []
--- NOTE | 2020-11-05 09:00 | BH.SGPN.GN ---
Behaviors/Verbalizations/Mental Status: [] Eye contact is good. Motor activity is appropriate. Appearance is casual. Speech is Appropriate. Mood is depressed. Affect is flat. Thoughts are linear and logical. No evidence of psychosis. Reviewed daily check in sheet and no reports of suicidal ideations or intent. Client Response/Progress/Benefit: [] Pt participated when prompted. Attentive. Emotion for today is Anxious. She talked at length regarding significant stressors over the weekend. Discussed belief of being gaslighted in the past. Feels that she was lied to which makes her angry and upset. Specific stressor lead to a series of events which ultimately impacted her mood and lead to crying spells and a verbal argument with support. Overwhelmed which led to calling off from work yesterday. Regression noted per pt. Benefited from group feedback and support. Pt did gain some insight during these stressors and has begun to take steps to set boundaries with certain family. Also able to identify a win of completing a task which she would have given up on in the past. Will continue in IOP to maintain safety, increase healthy coping strategies, and to prevent decompensation. Narrative Note: []
--- NOTE | 2020-11-05 10:16 | BH.SGPN.GN ---
Behaviors/Verbalizations/Mental Status: []Client alert and oriented, casually dressed and neatly groomed. Eye contact good. Motor activity appropriate. Speech within normal limits. Affect congruent, mood dysthymic and anxious. Thoughts linear, logical, no signs of hallucinations or delusions Client Response/Progress/Benefit: [] Client engaged in session AEB client providing input and personal examples, taking notes, and listening attentively to peers. Client shared connecting with the importance of setting boundaries, noting ?Others know how to treat us moving forward when we set boundaries?. Client assisted group with identifying barriers to setting healthy boundaries. These included: fear of abandonment, fear of being vulnerable, self-doubt, discomfort, and feeling it?s ?too hard?. Shared a personal barrier she has experienced in the past is struggling with not going back on her boundaries once she sets them. Listened and provided examples during discussion on different types of boundaries. Provided example of emotional as who we might feel comfortable crying in front of. Client seemed to benefit from increased awareness of how boundaries impact mental health. Will continue IOP tx to improve use of healthy coping, improve consistent thought challenge skills, maintain stability, and reduce mental health sx. Narrative Note: []
--- NOTE | 2020-11-05 11:19 | BH.SGPN.GN ---
Behaviors/Verbalizations/Mental Status: []Client alert and oriented, neatly dressed and groomed. Eye contact good. Motor activity appropriate. Speech within normal limits. Affect congruent, mood dysthymic and irritable. Thoughts linear, logical, no signs of hallucinations or delusions. Client Response/Progress/Benefit: []Client responded well to session, connecting with peers and receptive to supportive statements. Client engaged during psychoeducation on the different boundary styles. Client reported she has rigid and porous boundaries. Client stated she is rigid with her emotional boundaries, but porous with her time boundaries. Client shared she is getting better at recognizing her boundaries and is working on setting healthy boundaries with herself and others. Client participated in brainstorming strategies to improve boundary setting. Client wants to work on the strategy of understanding the importance of upholding boundaries and reminding herself just because someone does not agree, does not make it a bad boundary. Seemed to benefit from increased awareness of how current boundary style impacts mental health and learning different strategies to improve boundary style. Client to continue IOP tx to promote use of healthy coping skills, reduce negative thinking, and increase self-confidence. Narrative Note: []
--- NOTE | 2020-11-06 08:27 | BH.TPR ---
Treatment Plan Review Date of Admission:: 10/08/20 Date of Treatment Plan Review:: 11/06/20 Admitting Diagnoses:: Major depressive disorder, recurrent, severe without psychosis F33.2; generalized anxiety disorder; rule out dependent traits. Current Diagnoses:: Major depressive disorder, recurrent, severe without psychosis F33.2; generalized anxiety disorder; rule out dependent traits. Patient's Response to Treatment:: Client has been responding well to treatment and prior to this week she was reporting an improved mood and functioning. Client is currently experiencing increased symptoms due to a recent stressor regarding her separation. Client's DSM-5 scores have increased for anxiety, depression, and anger since admission. Client has good attendance and is an active group member. Client is engaged in individual sessions and self-reports practicing healthy coping skills. Client is medication compliant. Status of Current Problems and Symptoms: Client's problems are ongoing. Client currently reporting increased depressive and anxiety symptoms due to an external stressor with her ex-. Client shared she has been struggling to regulate her anger and client recently got into a verbal altercation with her [id number]. Client's anxiety is currently impacting her functioning at work as client was afraid to go into the office on Wednesday. Client also has been reporting recognition of negative core beliefs. Client continues to deny any active suicidal ideations which is progress. Problem #1 Problem Name:: Depression and SI Status of Goals:: Objective 1- not complete. Client has learned healthy coping skills to manage her depressive symptoms, however, client?s DSM-5 scores for depression increased since admission. This is attributed to recent stressors with her ex- and [id number]. Client has continued to deny any suicidal ideations. Objective 2- not complete, but in progress. Client continues to work on identifying and challenging negative thoughts. Client recently gained insight into a negative core belief she has had since childhood which has been hard to challenge. Team Recommendations:: Treatment team recommends client seek a divorce support group or potentially seek grief counseling as client continues to process and cope with the loss of her marriage. Problem #2 Problem Name:: Anxiety and irritability Status of Goals:: Objective 1- partially complete. Client reports she has been using healthy skills, but she continues to struggle with interpersonal conflict and boundary setting. Client reports external stressors and issues with supports respecting her boundaries which are acting as a barrier. Objective 2- Not complete. Client?s DSM-5 scores for anxiety and irritability have increased since discharge due to external stressors listed above. Client can identify triggers and coping skills. Client has used opposite action and grounding strategies which has been helpful. Team Recommendations:: Treatment team recommends client to seek additional support through a divorce support group. Team also recommends that client continue working on grounding skills and boundary setting.
--- NOTE | 2020-11-06 10:12 | BH.SGPN.GN ---
Behaviors/Verbalizations/Mental Status: []Client alert and oriented, casually dressed, hygiene appeared to be tended to. Eye contact fair. Motor activity appropriate. Speech within normal limits. Affect congruent. Mood euthymic. Thoughts linear, logical, no signs of hallucinations or delusions. Client Response/Progress/Benefit: []Pt active participant AEB providing input throughout session and listening attentively to others. Group identified not engaging in self-care can result in increased irritability, increased stress, increased depression, increased anger, using more unhealthy coping, and larger wave of lows and highs. Pt worked with group to identify benefits of self-care which includes: improve mental health, increased confidence, increased self-esteem, increased productivity, be a good example to others and able to help others more effectively. Pt stated a barrier to engaging in self-care is that it doesn't work so why do it. Pt seemed to benefit from increased awareness of the benefits of self-care and common barriers to self-care. Pt to continue IOP to continue use of healthy coping, challenge distorted thoughts and prevent decompensation. Narrative Note: []
--- NOTE | 2020-11-06 11:12 | BH.SGPN.GN ---
Behaviors/Verbalizations/Mental Status: []Client alert and oriented, neatly dressed and groomed. Eye contact good. Motor activity appropriate. Speech within normal limits. Affect constricted, mood dysthymic but euthymic during group. Thoughts linear, logical, no signs of hallucinations or delusions. Client Response/Progress/Benefit: []Client engaged participant AEB client taking notes during discussion and listened attentively to peers. Participated in group discussion on the various areas of self-care, benefits, and types of self-care activities for each area. Client completed worksheet in which client identified current self-care practices and what self-care activities client wants to start using. Client reported wanting work on her financial self-care as this will also help to reduce stress. Client shared she plans to develop a realistic budget and to only use wright for extra expenses. Appeared to benefit from reflecting on the area of self-care client can improve and setting a small goal. Will continue IOP tx to prevent decompensation triggered by situational stressors and to increase self-confidence. Narrative Note: []
--- NOTE | 2020-11-06 14:29 | BH.MDN_ITS ---
Multi-Disciplinary Note - Note 60-min Individual Time Started:: 09:05 Date: 11/06/20 Purpose of session/treatment goals addressed:: The purpose of this session was to work on goal #1 of client's tx plan. Another goal was to discuss grief, boundaries, and gaslighting. Eye Contact:: Good Motor Activity:: Appropriate Appearance:: Neat Speech:: Appropriate Mood:: Dysthymic Affect:: Congruent - tearful Thoughts:: Circular, No evidence of hallucinations/delusions noted Staff Interventions:: Therapist provided emotional support and gentle thought challenging. Therapist reviewed appropriate versus inappropriate guilt as well as psychoeducation on grief. Therapist emailed client resources on coping skills to combat gaslighting and support groups for divorce. Therapist explored client's negative thinking and core belief triggers. Helped client begin to combat these distortions. Discussed self-care for vacation. Client Response:: Client responded well to session, open to meeting with therapist. Client reports she has been feeling very upset and was tearful at times during session. Client shared she found out some things about her over the weekend which resulted in client lashing out at her [id number] and ex-. Client reports her also gaslights client which then makes client second-guess her emotions and feel guilty. Discussed gaslighting and client asked for resources on how to manage gaslighting. Also discussed what grief looks like when going through a divorce. Client stated it is hard to accept and cope because there are so many unknowns and the communication between client and her ex- is not effective. Client receptive to exploring a divorce support group as this might help client process her grief and learn how to begin accepting the new normal. Client stated this week she gained insight of a core belief she has which is all men will leave me. Client shared she feels this way because her father, stepfather, and stepbrother have all strained their relationship with client at some point. Client stated she thought her now ex- would be the man that would not leave client. Client receptive to emotional support and discussed ways to cope through this negative core belief. Client able to identify other positive supports in her life, including her brother who has been a strong support during client's divorce. Client also identified boundaries and self-care she can implement over vacation. Risks/Concerns:: Client denies any suicidal ideations, plan, or intent as of 11/06/20. Progress Toward Goals/Plan:: Client?s DSM-5 scores indicate an increase in anxiety and depression this week. Client reports this is situational due to ongoing interpersonal conflict and divorce stressors with her ex-. [facility] client?s symptoms have increased, she has not been experiencing suicidal ideations and she has been using healthier coping skills. Client is future oriented about vacation next week. Client continues to respond well during group and individual sessions. Client will continue IOP tx to prevent further compensation and improve emotional regulation. Time Stopped:: 10:02
--- NOTE | 2020-11-07 09:04 | BH.SGPN.GN ---
Behaviors/Verbalizations/Mental Status: []Client alert and oriented, neatly dressed and groomed. Eye contact good. Motor activity appropriate. Speech within normal limits. Affect constricted, mood anxious. Thoughts linear, logical, no signs of hallucinations or delusions. Reviewed client?s symptom tracker, no risk for suicidal ideation, plan, or intent as of 11/07/20 Client Response/Progress/Benefit: []Client responded well to session, attentive and providing supportive statements. Client reports feeling anxious this morning, but overall is coping well per her report. Client stated she had lunch with her step-dad and this was stressful, but good. Client is leaving for vacation this weekend which client is looking forward to, but it also produces some stress. Client has been practicing self-care this week by taking time to get her nails done and client has also been using calming coping skills with her son. Appeared to benefit from reflecting on application of calming skills and connecting with supports. Will continue IOP tx to promote mood stability, improve work-related function, and increase self-confidence. Narrative Note: []
--- NOTE | 2020-11-07 10:20 | BH.SGPN.GN ---
Behaviors/Verbalizations/Mental Status: []Eye contact is good. Alert and oriented. Motor activity is appropriate. Appearance is casual. grooming is appropriate. Speech is Appropriate. Mood is anxious, dysthymic. Affect is congruent. Thoughts are linear and logical. No evidence of psychosis or hallucinations. Client Response/Progress/Benefit: [] Client responded well to session, engaged, and participated in discussion and group activity. Client connected with topic of managing emotions, noting ?If we don?t manage emotions, this might lead to making bad decisions which can later have legal, relationship, or physical costs. Remained engaged throughout discussion on common barriers to effective emotion regulation which included: shutting down, lack of healthy coping skills, learned behaviors, toxic people/environment, and suppressing emotions. Identified personal barrier of managing emotions as toxic people and becoming triggered in loud environments. Engaged in challenge activity highlighting the connection between communication and effective emotion regulation. Challenged herself to take on a role which allowed client to practice being vulnerable. Client appeared to benefit from gaining increased awareness on common emotion regulation barriers and impacts of ineffective emotion regulation on mental health and personal relationships. Will continue IOP to promote continued use of healthy coping skills, continue to promote healthy change behaviors, maintain mood stability, and prevent decompensation. Narrative Note: []
--- NOTE | 2020-11-07 11:20 | BH.SGPN.GN ---
Behaviors/Verbalizations/Mental Status: []Client alert and oriented, casually dressed and fairly groomed. Eye contact fair. Motor activity appropriate. Speech within normal limits. Affect congruent. Mood euthymic. Thoughts linear, logical, no signs of hallucinations or delusions. Client Response/Progress/Benefit: []Client engaged in session AEB client providing input during discussion and completed worksheet. Attentively listening during psychoeducation on 4 zones of regulation and able to identify feelings and behaviors for each zone. Worked with group to identify coping skills one can use to support self in each zone. Client reported she most often is in the heightened state of alertness (yellow zone). Client stated being in the yellow zone most often has led to destruction of relationships. Benefited from increased education on zones of regulation or stages of alertness for emotions and healthy coping skills to use for each zone. Will continue IOP tx to continue use of healthy coping skills, challenge distorted thoughts, and prevent decompensation.
--- NOTE | 2020-11-07 15:23 | BH.COMM ---
Communication Note - Communication with Client Communication Note: Client is on vacation the weeks of 11/11/20-11/15/20 and therefore will not be at IOP.
== END 2020-11-11 23:59 ==
LOC: BHIOP 09:00
PROVIDERS: PCP Family Medicine; Referring Provider Psychiatry & Neurology Psychiatry; Visit Provider Psychiatry & Neurology Psychiatry
DX: F33.2 Major depressive disorder, recurrent severe without psychotic features (principal); F41.1 Generalized anxiety disorder; Z79.899 Other long term (current) drug therapy
CPT/HCPCS: H0035; 90834; 90837; 90853

== ENCOUNTER 2020-11-14 09:00 | Outpatient (RCR) | payer BC, SELFPAY ==
[2019-10-04 06:15] VITALS: BMI 42.3
[2020-11-12 00:38] VITALS: BP 135/95; PULSE 80
--- NOTE | 2020-11-19 09:00 | BH.SGPN.GN ---
Behaviors/Verbalizations/Mental Status: []Client alert and oriented, neatly dressed and groomed. Eye contact good. Motor activity appropriate. Speech within normal limits. Affect congruent, mood euthymic. Thoughts linear, logical, no signs of hallucinations or delusions. Reviewed client?s symptom tracker, no risk for suicidal ideation, plan, or intent as of 11/19/20 Client Response/Progress/Benefit: C[]Client responded well to session, engaged and providing positive encouragement. Client reports feeling energetic and motivated this morning as client shared she has been productive this week. Client returned from vacation earlier this week and stated she is somewhat tired from that, but it was a good experience. Client shared there was stress over the vacation, but client reports belief she managed it well. Client also had healthy boundaries with work while on vacation. Client reported she plans to schedule time for self-care this week to help client manage the stress of returning from vacation. Appeared to benefit from reflecting on gains. Progress noted in client's report of increased abiltiy to manage stress. Will continue IOP tx to reinforce healthy coping skills and further improve functioning. Narrative Note: []
--- NOTE | 2020-11-19 11:10 | BH.SGPN.GN ---
Behaviors/Verbalizations/Mental Status: []Client alert and oriented, casually dressed and appropriately groomed. Eye contact good. Motor activity appropriate. Speech within normal limits. Affect congruent, mood euthymic. Thoughts linear, logical, no signs of hallucinations or delusions. Client Response/Progress/Benefit: []Client responded well to session, taking notes and participating in worksheet discussion. Client set a goal to gain control over letting her boundaries down. Client wants to be able to work on this by writing down 3 times in a week in which she upheld a boundary to previously set. Client stated to help her accomplish this goal she will get a journal and refer back to strategies that can help her respond to gaslighting from her ex. Worked with group to brainstorm ideas to help increase follow through of goal. Appeared to benefit from identifying a small goal to benefit mental health. Will continue IOP tx to prevent decompensation, continue use of healthy coping skills, and improve confidence. Narrative Note: []
--- NOTE | 2020-11-20 09:00 | BH.SGPN.GN ---
Behaviors/Verbalizations/Mental Status: [] Eye contact is good. Motor activity is appropriate. Appearance is casual. Speech is Appropriate. Mood is depressed. Affect is flat. Thoughts are linear and logical. No evidence of psychosis. Reviewed daily check in sheet and no reports of suicidal ideations or intent. Client Response/Progress/Benefit: [] Pt was an active participant in group discussion. Emotion for today is tired. 1/5 for depression and anxiety. Shared that she has noted increase agitation and stress as she is scheduled to return to complete IOP and return to work full-time next week. She has been on reduced schedule while attending IOP. While fearful she reports having her aftercare set up which includes starting a divorce support group. Spent the day with her son yesterday. For the most part she reports no distress however had a crying spell for no reason while driving home. Reports that it lasted less than 10 minutes. Ruminating on the whys regarding the crying spells. Also reports that crying somehow triggered other negative thoughts. Able to break the cycle per report. Discussed skills used and some positive affirmation thought reframing that she used. Progress noted per pt report. Benefited from group support and encouragement. Will continue in IOP to maintain gains and transition back to full-time work. Narrative Note: []
--- NOTE | 2020-11-20 10:05 | BH.SGPN.GN ---
Behaviors/Verbalizations/Mental Status: []Eye contact is good. Motor activity is appropriate. Appearance is casual. Speech is Appropriate. Mood is euthymic. Affect is congruent. Thoughts are linear and logical. No evidence of psychosis. Client Response/Progress/Benefit: []Pt was an engaged participant in group discussions. Attentive during psycho-education on 4 types of conflict styles (Competing, Collaborating, Avoiding, and Accommodating). Worked with group to define conflict and identify how conflict is helpful; (allows us to grow, helps us stand up for ourselves, empowers us, helps clarify, and helps us gain clarification). With peers identified what prevents them from addressing or managing conflict which included: emotions, past experiences, fear, upbringing, what ifs, and worried how other person will react. Pt believes her conflict style is collaborative while at work which decreases stress. Stated with her family conflict style is avoidance and accommodating which leads pt to not have her needs met. Benefited from group due to increase insight and awareness of conflict, conflict styles, and obstacles to managing conflict. Pt to discharge from [facility] today. Narrative Note: []
--- NOTE | 2020-11-20 11:08 | BH.SGPN.GN ---
Behaviors/Verbalizations/Mental Status: []Client alert and oriented, neatly dressed and groomed. Eye contact good. Motor activity appropriate. Speech within normal limits. Affect congruent, mood euthymic. Thoughts linear, logical, no signs of hallucinations or delusions. Client Response/Progress/Benefit: []Client engaged in session AEB contributing to discussion and engaging in activity. Client did well to review current conflict style and its impact on mental health. Attentive and taking notes during discussion on strategies for more effectively managing conflict in own life. Client identified wanting to work on discussing one topic at a time when addressing conflict. Client shared she can become the ?competing? type which then leads to guilt and more anger. Client wants to get better at focusing on problem at a time. Appeared to benefit from gaining strategies to help client better manage conflict. Client continues to demonstrate progress in managing her emotions thought utilizing coping skills. Client will discharge later this week. Narrative Note: []
--- NOTE | 2020-11-20 15:39 | BH.MDN ---
Multi-Disciplinary Note - Note 45-min Individual Time Started:: 10:32 Date: 11/19/20 Purpose of session/treatment goals addressed:: The purpose of this session was to review client's progress and review strategies that will promote mood stability and gains made in [facility]. Another goal was to discuss discharge recommendations and process any current stressors. Eye Contact:: Good Motor Activity:: Appropriate Appearance:: Casual Speech:: Appropriate Mood:: Anxious Affect:: Congruent Thoughts:: Linear, Logical, No evidence of hallucinations/delusions noted Staff Interventions:: Therapist used open-ended questions to explore client's thoughts on personal progress. Therapist also provided emotional support and helped client process current stressors. Therapist reviewed supports and coping skills with client to promote gains and prevent setbacks. Therapist discussed aftercare plan with client and used strengths-perspective to empower client on the goals client has accomplished. Therapist discussed the benefits of ongoing maintenance and use of daily coping skills. Therapist gave client a quote collage for closure. Client Response:: Client responded well to session, open to meeting with therapist. Client reports vacation went well and client was able to get quality time with her boys and family. Client shared there were stressful events on vacation and client reports belief she handled these situations better than she would in the past. This is significant as client struggles with giving herself credit and often minimizes her progress. Client's mood has improved compared to prior to vacation. Prior to vacation, client was reporting increased depression, anger, and anxiety due to conflict and ongoing stress with her ex-. Client reports she continues to have complex emotions about her divorce and ex, but she feels much more able to handle these emotions now. Client wants to continue working on challenging guilt and combating gaslighting. Discussed strategies such as writing out times client communicated and what the outcome was, so client does not second-guess herself. Also reviewed healthy coping skills to help support client's mental health. Client would like to join [facility] aftercare and she also plans to reach out to [facility] to get divorce-specific counseling. Risks/Concerns:: Client denies any suicidal ideations, plan, or intent as of 11/19/20. Client denies any thoughts of . Progress Toward Goals/Plan:: Client will discharge from [facility] tx this week as she has accomplished her tx goals and no longer meets criteria for IOP level of care. Client's DSM-5 scores for depression decreased by 25%, anxiety decreased by 50%, and suicidal ideations decreased by 100%. Client is anxious about returning to work full-time, but recognizes that she has the skills to manage her emotions. Client continues to experience complex emotions surrounding her divorce, and she will be starting a divorce support group in January. Client will also participate in IOP aftercare and continue seeing [facility] for medication management. Time Stopped:: 11:21
--- NOTE | 2020-11-20 15:41 | BH.AFTERPLAN ---
Aftercare Plan - Demographics Treatment End Date:: 11/21/20 Psychiatrist:: Sylvia Gonsalez Psychiatrist Office #:: [phone] [facility] Therapist:: Desiree Rosa Therapist Phone #:: [phone] - Plan Details Progress/Aftercare Plan Details:: Urszula has made significant strides since starting IOP as shown by her reduced symptoms, ability to challenge distortions, and overall increased ability to manage emotions and stressors. When Urszula started IOP, she was depressed, lacked energy and motivation, felt angry and overwhelmed, struggled to ask for help, and was experiencing numerous negative thoughts. Now, Urszula is actively using healthy coping skills, setting boundaries, challenging negative thoughts, and using the awareness she has gained to manage her emotions. Urszula contributed to group discussions, offered emotional support to peers, and consistently followed through with her goals. In individual sessions, Urszula was receptive to feedback, consistent with homework, and willing to push herself. Urszula?s DSM-5 scores decreased overall by 17%, depression decreased by 25%, thoughts of hurting herself decreased by 100%, anxiety decreased by 50%, and not knowing who she is or what she wants in life decreased by 50%. Urszula will follow up with a local divorce support group, [facility] aftercare, and [facility] for medication. Urszula also has the information for [facility] for individual counseling. Strategies for Success:: 1.Challenge those negative thoughts! Continue to catch distortions and reframe them. 2. Challenge guilt and remind yourself that YOUR emotions are valid and it is OKAY to set boundaries. 3. Boundaries :) you have been working so hard at this, keep it up! And remember, just because someone doesn?t like the boundary doesn?t mean it?s a bad boundary. 4. Self-care! Walk, get rest, say yes, say no, reach out for help, do something fun, go to a support group, be kind to yourself. 5. Self-compassion. Remember that you are not perfect AND you are still worthy of respect, love, and growth. 6. Ask yourself is it helpful or is it harmful. 7. DDD (delay, distract, decide). 8. Reflect with journaling and give yourself credit for progress. - Appointments Appointments/Referrals to Other Services:: 1. Follow up with the divorce support group starting in January. 2. IOP aftercare every from 2-3:30pm starting on 11/28/20 for 10 weeks. 3. Follow up with Nico[facility] Quig[facility] for outpatient counseling and [facility] for medication management. - Medications Home Medications: Home Medications levonorgestrel [Mirena] 1 ea IY DAILY 11/25/16 cholecalciferol (vitamin D3) 50 mcg (2,000 unit) chewable tablet 2,000 unit PO DAILY 08/09/19 citalopram 20 mg tablet 40 mg PO DAILY 08/09/19 lansoprazole 30 mg capsule,delayed release 30 mg PO DAILY 08/09/19 bupropion HCl [Wellbutrin XL] 300 mg PO DAILY #30 tab 10/09/20 bupropion HCl [Wellbutrin XL] 300 mg PO DAILY 30 Days #30 tab 10/30/20
--- NOTE | 2020-11-21 08:18 | BH.DS_ITS ---
Discharge Summary - Demographics Date of Admission:: 10/08/20 Discharge Date: 11/21/20 Presenting Problems at Admission:: Client is a 39-year-old female with a history of depression. Client was referred to [facility] tx by her outpatient therapist due to worsening mental health and suicidal ideations. Client reports decompensation over the past year, but her depression worsened over the past month prior to starting IOP. Prior to IOP, client experienced a significant stressor which led to a self-aborted suicide attempt. Client was not admitted and denies any SI since then. At admission, client endorsed a depressed mood, poor appetite, low energy, hopelessness, guilt, and anhedonia. Client was also experiencing increased irritability, guilt, ruminations, avoidance, and grief. Client?s symptoms were significantly impacting her overall functioning. Discharge Diagnoses:: Major depressive disorder, recurrent, severe without psychosis F33.2; generalized anxiety disorder; rule out dependent traits. Reason for Discharge:: Client has accomplished her treatment goals AEB her reduction in DSM-5 symptom scores, self-report of increased ability to manage stressors, and improved functioning. Client no longer meets criteria for [facility] level of care and will transition to outpatient counseling and [facility] aftercare. - Treatment Progress During Treatment & Response: Client has made significant strides since starting IOP as shown by her reduced symptoms, ability to challenge distortions, and overall increased ability to manage emotions and stressors. When Client started IOP, she was depressed, lacked energy and motivation, felt angry and overwhelmed, struggled to ask for help, and was experiencing numerous negative thoughts. Now, Client is actively using healthy coping skills, setting more boundaries, challenging negative thoughts, and using the awareness she has gained to manage her emotions. Client contributed to group discussions, offered emotional support to peers, and consistently followed through with her goals. In individual sessions, Client was receptive to feedback, consistent with homework, and willing to push herself. Client?s DSM-5 scores decreased overall by 17%, depression decreased by 25%, thoughts of hurting herself decreased by 100%, anxiety decreased by 50%, and not knowing who she is or what she wants in life decreased by 50%. Client will follow up with a local divorce support group, [facility] aftercare, and [facility] for medication. Client also has the information for [facility] for individual counseling. Issues Still to be Addressed:: Client continues to grieve the loss of her marriage and can benefit from receiving ongoing support and counseling for this. Client also wants to work on increasing self-confidence with boundary setting and overcoming gaslighting. Lastly, client can benefit from continuing to practice self-care, thought challenging, and journaling. Discharge Recommendations/Instructions:: Client is recommended to follow up with [facility] aftercare and plans to begin on 11/28/20. Client signed up for a weekly divorce support group that starts in January. Client was provided with counseling resources and client would like to set up an appointment at [facility]. Client will continue to see [facility] for medication management. Discharge Handout: Complete Discharge Handout with client on aftercare options and continuity of care.
--- NOTE | 2020-11-21 09:05 | BH.SGPN.GN ---
Behaviors/Verbalizations/Mental Status: [] Eye contact is good. Motor activity is appropriate. Appearance is casual. Speech is Appropriate. Mood is anxious. Affect is congruent. Thoughts are linear and logical. No evidence of psychosis. Reviewed daily check in sheet and no reports of suicidal ideations or intent. Client Response/Progress/Benefit: [] Pt was an active participant in group discussion. Attentive. Emotion for today is content. Mental health wins include going for a walk yesterday and upholding certain boundaries. Shared that in the past she struggles with boundaries that she sets. Continuing with journaling, positive affirmations, and other skills which are helping her to be less negative and have increased confidence. Shared that today is her last day in [facility]. Anxiety about returning to work full-time and not having support of [facility] however insight that she is ready to return. Summarized her journey though [facility] and noted improved functioning. Benefited from group support and encouragement. Will be discharged from [facility] today. Narrative Note: []
--- NOTE | 2020-11-21 10:15 | BH.SGPN.GN ---
Behaviors/Verbalizations/Mental Status: []Client alert and oriented, neatly dressed and groomed. Eye contact good. Motor activity appropriate. Speech within normal limits. Affect constricted, mood euthymic. Thoughts linear, logical, no signs of hallucinations or delusions. Client Response/Progress/Benefit: []Client was an engaged participant AEB client providing input throughout session and listened attentively to others. When discussing quote client provided an example of how our choices can change the course of our day/life. Client stated there are things we do not get to choose, but we can decide to stay stuck or move forward. The group worked together to identify barriers that keep one from choosing a new and healthier path to mental wellness. Attentive during psychoeducation on the chapters of life. Benefited from increased awareness and education on barriers to choosing new wellness paths and chapters of life. Client identified being in between chapters 4/5 as client is moving forward and has awareness, but she still has barriers at times. Will continue IOP tx continue use of healthy coping skills, improve self-esteem and reinforce healthy boundaries. Narrative Note: []
--- NOTE | 2020-11-21 11:15 | BH.SGPN.GN ---
Behaviors/Verbalizations/Mental Status: []Client alert and oriented, casual dress, hygiene appropriate. Eye contact good. Motor activity appropriate, at times. speech and tone WNL. Affect congruent. mood euthymic. Thoughts linear, logical, no signs of hallucinations or delusions. Client Response/Progress/Benefit: []Client engaged in session AEB listening to discussion and provided input at times. Client attentive during psychoeducation about importance of maintenance plans. Client did well to work with the group to brainstorm strategies to promote making progress towards their desired chapter. Pt completed provided maintenance plan worksheet in small group. Pt identified personal triggers as: toxic people, negative self-talk, getting involved in more conflicts, and unrealistic expectations. Identified warning signs as: crying episodes, isolating, sleeping too much, and overcommitting. Pt identified healthy coping skills as: 5 senses, meditation, and self-talk. Seemed to benefit from increasing awareness of triggers, warning signs and coping skills. PT has made significant progress since starting IOP and will discharge from IOP today. Narrative Note: []
== END 2020-11-21 13:17 | disposition home or self-care (01) ==
LOC: BHIOP 09:00
PROVIDERS: PCP Family Medicine; Referring Provider Psychiatry & Neurology Psychiatry; Visit Provider Psychiatry & Neurology Psychiatry
DX: F33.2 Major depressive disorder, recurrent severe without psychotic features (principal); F41.1 Generalized anxiety disorder
CPT/HCPCS: S9480; 90834; 90853

== ENCOUNTER 2020-11-28 14:00 | Outpatient (RCR) | payer BC, SELFPAY ==
[2019-10-04 06:15] VITALS: BMI 42.3
--- NOTE | 2020-11-28 14:00 | BH.SGPN.GN ---
Behaviors/Verbalizations/Mental Status: []Client alert and oriented, casually dressed. Eye contact good. Motor activity appropriate. Speech within normal limits. Affect congruent, mood euthymic. Thoughts linear, logical, no signs of hallucinations or delusions. Client Response/Progress/Benefit: []Pt responded well to session AEB pt providing input during discussion and listening attentively to peers. Pt reported mental health positive as engaging in self-care and being proud of self for doing something for herself. Pt engaged in discussion about self-love. Pt worked with group to identify strategies to increase self-love. Pt reported she wants to work on self-love by stop comparisons to others instead focusing on her positive qualities. Pt seemed to benefit from reviewing treatment progress and stressors as well as learning about how to increase self-love. Pt to continue aftercare program to maintain treatment progress, continue use of healthy coping, and prevent decompensation.
--- NOTE | 2020-11-28 14:16 | BH.MTP ---
Master Treatment Plan - Patient Information Program Physician:: Dr. Sylvia Gonsalez Primary Therapist:: Desiree TRUJILLO - Psychiatric Diagnoses Psychiatric Diagnoses:: Major depressive disorder, recurrent, severe without psychosis F33.2; generalized anxiety disorder; rule out dependent traits. Diagnosis Code(s):: F 33.2 - Estimated LOS Estimated LOS (in weeks):: 12 Problem/Goal #1 - Problem/Goal #1 Stated Goal:: client will maintain or see a reduction in symptoms AEB client score on the DSM 5 cross-cutting measure and improve client's daily functioning. - Objectives Objective #1 Stated Objective: Client will continue to consistently apply healthy coping skills to maintain progress made in IOP tx. Interventions: Through group therapy, client will review warning signs and triggers as well as healthy coping skills learned in IOP tx to successfully maintain gains while transitioning into outpatient therapy. Discharge Criteria: Client will have accomplished this goal when client's score on the DSM-5 cross-cutting measure has either maintained or reduced over a 12 week period. Target Date: 02/20/21 Review Date: 12/26/20 Status: open Objective #2 Stated Objective: Client will learn and utilize 2-3 maintenance strategies to prevent decompensation. Interventions: Through group therapy, client will be provided with education on healthy maintenance behaviors, relapse prevention techniques, and healthy coping strategies. Discharge Criteria: Client will have accomplished this goal when can report using at least 2 maintenance skills to prevent decompensation. Target Date: 02/20/21 Review Date: 12/26/20 Status: open
== END 2020-12-11 23:59 ==
LOC: BHOG 14:00
PROVIDERS: PCP Family Medicine; Referring Provider Psychiatry & Neurology Psychiatry; Visit Provider Psychiatry & Neurology Psychiatry
DX: F33.2 Major depressive disorder, recurrent severe without psychotic features (principal)
CPT/HCPCS: 90853

== ENCOUNTER 2020-12-12 09:00 | Outpatient (RCR) | payer BC, SELFPAY ==
[2019-10-04 06:15] VITALS: BMI 42.3
--- NOTE | 2020-12-12 14:00 | BH.SGPN.GN ---
Behaviors/Verbalizations/Mental Status: [] Client alert and oriented, casually dressed and groomed. Eye contact good. Motor activity appropriate. Speech within normal limits. Affect congruent, mood dysthymic. Thoughts linear, logical, no signs of hallucinations or delusions. Client Response/Progress/Benefit: [] Client receptive of session as evidenced by remaining attentive, taking notes and providing input throughout discussion. Client reflected on progress and stated she is feeling ?up and down? as she has experienced both ?good and bad but I?m trying to recognize the good?. Client expressed that she has been struggling to remind herself that her supports want to be here and want to help her. Shared this has resulted in struggling with guilt as a result. Went on to discuss some personal wins which included successfully going away for work for the weekend. Noted feeling more confident in herself by proving to herself that she can successfully still travel for work. Client appeared to connect well with group discussion on the importance of self-reflection and the associated mental health benefits. Worked with group to review barriers to consistent personal reflection and strategies for better incorporating self-reflection into daily life. Client plans to incorporate more use of the GLAD reflection technique in her daily life. Expressed this will help to improve her ability to recognize more of the positives. Client recommended continued participation in Aftercare program to further support ongoing mood stability and maintain gains made. Narrative Note: []
--- NOTE | 2020-12-19 14:00 | BH.SGPN.GN ---
Behaviors/Verbalizations/Mental Status: []Client alert and oriented, casual dress, hygiene tended to. Eye contact good. Motor activity appropriate. Speech within normal limits. Affect congruent, mood anxious. Thoughts linear, logical, no signs of hallucinations or delusions. Client Response/Progress/Benefit: []Client responded well to session, receptive to feedback and sharing supportive statements to peers. Client reported she went to a birthday green party for a family member for the first time without her soon to be ex-. Client stated it's going to take time to adjust to her new life routine. Client reported mental health positive as trying to work on setting firm boundaries with ex and to focus on her needs. Client participated in the group discussion of maintenance and the benefits of creating a maintenance plan. Client contributed as the group discussed what components make up a maintenance plan. Client created own mental health maintenance plan. Client identified warning signs which included: lashing out, not journaling, stop getting nails done, and shopping too much. Client's coping skills included: talking to supports, walking, and negative thought challenge. Appeared to benefit from creating a maintenance plan to promote gains and prevent setbacks. Will continue aftercare next week. Narrative Note: []
--- NOTE | 2020-12-26 14:00 | BH.SGPN.GN ---
Behaviors/Verbalizations/Mental Status: []Client alert and oriented, casual appearance. Eye contact good. Motor activity appropriate. Speech within normal limits. Affect congruent, mood euthymic. Thoughts linear, logical, no signs of hallucinations or delusions. Client Response/Progress/Benefit: []Pt responded well to session AEB pt openly sharing thoughts and feelings and completing worksheet. Pt reported mental health positive as meeting with new counselor. Pt reported on Wednesday he had many negative moments but able to move on faster compared to the past. Pt reported stressor is having her dissolution papers rejected a second time. Pt responded well to group discussion and review about self-care. Pt stated she will work on following self-care activities: journal, pray, therapy, take a walk, go for lunch with co-worker, and work outside. Pt seemed to benefit from support from peers and identifying self-care plan. Pt to continue aftercare to prevent decompensation, increase consistent healthy coping, and challenge negative thoughts. Narrative Note: []
--- NOTE | 2020-12-26 14:05 | BH.MTP_ITS ---
Treatment Plan Review Date of Admission:: 11/28/20 Date of Treatment Plan Review:: 12/26/20 Admitting Diagnoses:: Major depressive disorder, recurrent, severe without psychosis F33.2; generalized anxiety disorder; rule out dependent traits. Current Diagnoses:: Major depressive disorder, recurrent, severe without psychosis F33.2; generalized anxiety disorder; rule out dependent traits. Patient's Response to Treatment:: Pt responding well to treatment AEB pt consistently attending sessions, actively engaged in group discussions, and reporting use of skills outside treatment environment. Status of Current Problems and Symptoms: Client currently reporting an increase in DMS-5 scores due to situational stressors with her ex- and their dissolutioin paperwork getting rejected a second time. Client reporting a 33% increase in depressive symptoms and anxiety has increased by 67%. Client just started with a new therapist today who specializes in divorce and grief associated with divorce. Client also starts a divorce support group in January. Client is hopeful that this extra support will help client better manage her complex emotions about divorce. Problem #1 Problem Name:: Pt will maintain or see a reduction in sx AEB client score on the DSM-5 Status of Goals:: Objective 1- partially complete, ongoing work encouraged. Client?s scores on the DSM-5 for depression, anger, and anxiety all increased since admission. Client acknowledges the increase is due to situational stressors. Overall client?s scores are still within the mild range for severity. Objective 2- complete with ongoing work encouraged. Client has been consistently reporting use of opposite action, thought reframing, spending time with supports, acknowledging the positives, and journaling. Team Recommendations:: Recommended client continue IOP aftercare group in addition to attending regular outpatient counseling in order to maintain gains. Client also encouraged to continue working on boundary setting with her ex- .
--- NOTE | 2021-01-09 14:00 | BH.SGPN.GN ---
Behaviors/Verbalizations/Mental Status: []Eye contact is good. Motor activity is appropriate. Appearance is casual. Speech is Appropriate. Mood is content. Affect is congruent. Thoughts are linear and logical. No evidence of psychosis. Client Response/Progress/Benefit: []Client responded well to session, client reports feeling ?emotionally exhausted? but ?I?m coping.? client shared she had a recent ?relapse? in lashing out at her ex-. Client also shared her grandmother is in hospice. Client stated she has been keeping up with therapy, scheduling time with friends, and practicing mindfulness which has helped client cope. Client engaged well during the discussion of the components of self-compassion. Client connected with the benefits of self-compassion and participated in the activity of reframing a recent setback using self-compassion. Client used her recent setback of lashing out at her ex- and reminded herself that she is human, valid in her feelings, and can learn from this setback. Client appeared to benefit from practicing self-compassion and connecting with peers. Will continue aftercare to promote mood stability and reinforce healthy coping skills. Narrative Note: []
== END 2021-01-11 23:59 ==
LOC: BHOG 09:00
PROVIDERS: PCP Family Medicine; Referring Provider Psychiatry & Neurology Psychiatry; Visit Provider Psychiatry & Neurology Psychiatry
DX: F33.2 Major depressive disorder, recurrent severe without psychotic features (principal); F41.1 Generalized anxiety disorder
CPT/HCPCS: 90853

== ENCOUNTER 2021-01-16 10:23 | Outpatient (RCR) | payer BC, SELFPAY ==
[2019-10-04 06:15] VITALS: BMI 42.3
--- NOTE | 2021-01-16 14:00 | BH.SGPN.GN ---
Behaviors/Verbalizations/Mental Status: []Client alert and oriented, casually dressed and groomed. Eye contact good. Motor activity appropriate. Speech within normal limits. Affect congruent. Mood euthymic. Thoughts linear, logical, no signs of hallucinations or delusions. Client Response/Progress/Benefit: [] Client responded well to session AEB sharing thoughts and feelings and listening attentively to peers. Client reported she is feeling ?stressed today and discussed this is related to the recent passing of her grandmother. Noted that allowing herself to grieve has been a difficult process as she has traditionally pushed down her emotions and ignored them. Shared this is what her father has been doing which is difficult for her to watch, but she is trying to remind herself to respect his grief process. Client able to identify some personal win which included an upcoming trip to [place], [place] with her children. Notes this is one of the first times she will be traveling so far with them without her ex- and is excited to do so. Identified that this is a much needed ?break? for them all and an opportunity for personal self-care. Client attentive during discussion of internal vs. external gratitude. Client created weekly plan on how she will practice gratitude over the next 7 days. Appeared to benefit from connecting with peers and creating plan to identify gratitude. Pt plan included: swimming with her kids and eating at a nice restaurant, track wins from the weekend and journal, take a bike ride or walk, daily devotions/bible study, spend time [place] the [place], and listen to her favorite song. Will continue IOP aftercare to continue use of healthy coping skills, challenge distorted thoughts and maintain gains made. Narrative Note: []
--- NOTE | 2021-01-23 14:00 | BH.SGPN.GN ---
Behaviors/Verbalizations/Mental Status: []Client alert and oriented, casually dressed and groomed. Eye contact good. Motor activity appropriate. Speech within normal limits. Mood dysthymic. Affect constricted. Thoughts linear, logical, no signs of hallucinations or delusions. Client Response/Progress/Benefit: []Client responded well to session, reports feeling ?tired? today and shared that she struggled earlier this week because she forgot about her son?s soccer game. Client shared she is trying to practice some self-compassion and make shorter to-do lists. Client has been consistent with outpatient counseling and finds it helpful. Contributing during discussion of vulnerability and benefits of practicing vulnerability. Shared personal experience of how being vulnerable with her mental health has improved client?s relationship with her brothers. Discussed ways we avoid feeling vulnerable and how this negatively affects mental health and relationships. Client shared she wants to continue to be vulnerable with her boys about her mental health and getting therapy. Appeared to benefit from reflecting on the positive impact vulnerability can have on mental health. Will continue IOP aftercare to promote gains and reinforce healthy coping skills. Narrative Note: []
--- NOTE | 2021-01-23 14:43 | BH.MTP_ITS ---
Treatment Plan Review Date of Admission:: 11/28/20 Date of Treatment Plan Review:: 01/23/21 Admitting Diagnoses:: Major depressive disorder, recurrent, severe without psychosis F33.2; generalized anxiety disorder; rule out dependent traits. Current Diagnoses:: Major depressive disorder, recurrent, severe without psychosis F33.2; generalized anxiety disorder; rule out dependent traits. Patient's Response to Treatment:: Pt responding well to treatment AEB pt consistently attending sessions, actively engaged in group discussions, and reporting use of skills outside treatment environment. Pt has also been consistently seeing her outpatient therapist. Status of Current Problems and Symptoms: At time of pt's first tx plan review, pt's scores had increased due to situational stressors regarding pt's divorce. Pt is now reporting reduced symptoms and pt's DSM-5 scores for depression have decreased by 50% since first review. Additionally, pt's anxiety has decreased by 67% and pt's anger has decreased by 50%. Pt continues to report numerous stressors including the loss of her grandmother, the upcoming school year, and ongoing divorce paperwork. Pt reports using healthy coping skills to help manage stress and challenge negative thinking. Problem #1 Problem Name:: Pt will maintain or see a reduction in sx AEB client score on the DSM-5 Status of Goals:: Objective 1- partially complete, ongoing work encouraged. Pt?s scores on the DSM-5 for depression, anger, and anxiety all decreased since pt's first tx plan review. However, pt is often impacted by external stressors, so pt will work on maintaining these gains. Objective 2- complete with ongoing work encouraged. Client has been consistently reporting use of opposite action, thought reframing, spending time with supports, attending outpatient therapy, acknowledging the positives, and journaling. Team Recommendations:: Recommended pt continue IOP aftercare group in addition t o attending regular outpatient counseling in order to maintain mood stability. Pt also encouraged to continue working on boundary setting with her ex- and pt will soon be attending a divorce support group.
--- NOTE | 2021-01-30 14:00 | BH.SGPN.GN ---
Behaviors/Verbalizations/Mental Status: []Client alert and oriented, casually dressed and groomed. Eye contact good. Motor activity appropriate. Speech within normal limits. Affect congruent. Mood anxious and dysthymic. Thoughts linear, logical, no signs of hallucinations or delusions. Client Response/Progress/Benefit: []Client responded well to session AEB sharing thoughts and feelings and listening attentively to peers. Client reported feeling ?stressed today as she has several stressors coming up regarding her pending divorce. Did well to identify self-care activities she can utilize to reduce stress and manage her emotions in the time before her pre-trial hearing. Shared that she was able to spend a lot of time with her children over the weekend which had been a positive and practiced using skills to walk away from an argument with her ex at their son?s birthday alliance party. Client expressed that although she wishes she did not engage in the conflict at all, she is proud of herself for walking away. Additional skills used included journaling and reaching out to supports. Appeared to benefit from reflecting on areas of progress as well as encouragement provided by the group. Client contributed to the discussion on mindfulness and it?s mental, physical, and interpersonal benefits. Client attentive during discussion reviewing and demonstrating various mindfulness practices. Created weekly plan on how client will practice mindfulness over the next 7 days. Appeared to benefit from connecting with peers and creating plan to improve ability to be present. Pt plan included: going for a walk on the soccer field, body scan, emotion check-in, cooking a meal with her boys, listening to nature sounds, and sitting in silence. Will continue IOP aftercare to continue use of healthy coping skills, challenge distorted thoughts and maintain gains made. Narrative Note: []
--- NOTE | 2021-02-06 14:00 | BH.SGPN.GN ---
Behaviors/Verbalizations/Mental Status: []Client alert and oriented, casually dressed and groomed. Eye contact good. Motor activity appropriate. Speech within normal limits. Affect congruent, mood dysthymic and disappointed. Thoughts linear, logical, no signs of hallucinations or delusions. Client Response/Progress/Benefit: []Pt responded well to session, attentive and taking notes. Pt reports feeling ?defeated? today as pt reports ongoing divorce stress and some school attendance issues for her oldest son. Pt continues to see a therapist weekly and finds this helpful and pt starts a divorce support group [facility]. Pt also trying to focus on developing a routine with her boys. Pt worked cooperatively with group to identify benefits of having a daily routine which included: sense of accomplishment, increased motivation, and mental health maintenance. Pt engaged in brainstorming of various daily routine ideas. Pt completed task of creating a daily routine focusing on journaling, walking, and spending time with loved ones as well as identified a supportive mantra. Pt shared a copy of her routine and shared her mantra of ?I release the negativity within me and open myself up to happiness and opportunity.? Pt seemed to benefit from support from peers and learning about benefits of routine. Pt to continue aftercare group to improve consistent use of healthy coping, maintain gains, and prevent decompensation. Narrative Note: []
== END 2021-02-11 23:59 ==
LOC: BHOG 10:23
PROVIDERS: PCP Family Medicine; Referring Provider Psychiatry & Neurology Psychiatry; Visit Provider Psychiatry & Neurology Psychiatry
DX: F33.2 Major depressive disorder, recurrent severe without psychotic features (principal); F41.1 Generalized anxiety disorder
CPT/HCPCS: 90853

== ENCOUNTER 2021-02-13 09:58 | Outpatient (RCR) | payer BC, SELFPAY ==
[2021-02-12 00:36] VITALS: BMI 42.3
--- NOTE | 2021-02-13 14:00 | BH.SGPN.GN ---
Behaviors/Verbalizations/Mental Status: []Client alert and oriented, casually dressed and groomed. Eye contact good. Motor activity appropriate. Speech within normal limits. Affect congruent, mood euthymic and positive. Thoughts linear, logical, no signs of hallucinations or delusions. Client Response/Progress/Benefit: []Pt responded well to session AEB pt contributing during discussion and listening attentively to others. Pt reported she has been struggling with time management which has been making it difficult to accomplish everything she needs done. Pt stated she has started to identify what she is accomplishing each day to help her recognize her wins. Pt identified mental health positive as hanging out with more friends. Pt engaged in discussion about healthy decision making. Pt stated wanting to work on making healthy decisions with money and work. Pt reported she will focus on taking wright out for spending within budget and better boundaries with her kids about how much they can spend.. Pt stated to improve work she will apply for one new job per week. Pt seemed to benefit from identifying healthy choices she can make in at least one area of her life. pt to continue aftercare to maintain gains and prevent decompensation. Narrative Note: []
--- NOTE | 2021-02-20 08:02 | BH.DS_ITS ---
Discharge Summary - Demographics Date of Admission:: 11/28/20 Discharge Date: 02/20/21 Presenting Problems at Admission:: Client discharged from IOP tx and transitioned to IOP aftercare to maintain gains client made in IOP and to reinforce healthy coping skills. At admission to IOP aftercare, client reported experiencing reduced but ongoing symptoms of anxiety and depression. Client was also experiencing life stressors such as a pending divorce, her children returning to school and their extracurricular activities, as well as continued grief management. Despite these stressors, client reported ability to cope with her mental health and was actively using healthy skills. Client also was consistently attending weekly outpatient counseling and recently began a divorce support group. Discharge Diagnoses:: Major depressive disorder, recurrent, severe without psychosis F33.2; generalized anxiety disorder; rule out dependent traits. Reason for Discharge:: Client has accomplished tx goals AEB ability to maintain mood stability and gains made in IOP despite several psychosocial stressors. Client will step down to weekly traditional outpatient counseling. - Treatment Progress During Treatment & Response: Client was engaged in IOP aftercare as evidenced by client's participation in group discussions and self-report of consistently applying coping skills as she dealt with various stressors. Client's DSM-5 scores have decreased by 50% from end of IOP to end of aftercare. Client specifically saw a 100% reduction in irritability, 33% reduction in depression, and 100% reduction in symptoms of pb. At discharge, client reported more positive thinking patterns, improved ability to walk away from conflict, improved emotion regulation, more consistent use of healthy coping skills, consistent use of self-care, and better thought challenging skills. Issues Still to be Addressed:: Client can benefit from ongoing outpatient counseling and medication management to promote gains and reinforce healthy coping skills. Client can continue to work on reaching out to healthy supports, conflict resolution, health boundary setting, self-compassion, and self-care. Discharge Recommendations/Instructions:: Client is encouraged to follow up with the outpatient counselor at [facility] and will continue to see Ivy Chapman for medication management. Currently attending a weekly divorce support group as well. Discharge Handout: Complete Discharge Handout with client on aftercare options and continuity of care.
--- NOTE | 2021-02-20 14:00 | BH.SGPN.GN ---
Behaviors/Verbalizations/Mental Status: []Client alert and oriented, casually dressed and appropriately groomed. Eye contact good. Motor activity appropriate. Speech within normal limits. Affect congruent, mood euthymic. Thoughts linear, logical, no signs of hallucinations or delusions. Client Response/Progress/Benefit: []Pt receptive of session, engaged throughout. Pt stated she did accomplish goals from last group session of creating a realistic budget she starts tomorrow and setting a financial boundary with her kids. Pt identified mental health positive as continuing to attend divorce group which has been helpful. Pt reflected on her progress since IOP and ability to continue to feel more stable during aftercare program. Receptive of discussion on personal accountability and its importance in maintaining mental health stability. Pt worked cooperatively with group to identify benefits of maintaining personal accountability. Engaged in brainstorming strategies for improving ability to hold themselves accountable. Pt identified that for homework will practice using accountability by having a weekly check-in to make sure she is engaging in activities for her most important values. Pt seemed to benefit from support from peers and increasing understanding of personal accountability benefits and strategies. Pt is discharging from aftercare today. Narrative Note: []
== END 2021-02-21 08:15 | disposition home or self-care (01) ==
LOC: BHOG 09:58
PROVIDERS: PCP Family Medicine; Referring Provider Psychiatry & Neurology Psychiatry; Visit Provider Psychiatry & Neurology Psychiatry
DX: F33.2 Major depressive disorder, recurrent severe without psychotic features (principal); F41.1 Generalized anxiety disorder
CPT/HCPCS: 90853

== ENCOUNTER 2021-07-21 15:18 | Outpatient (CLI) | payer BC, SELFPAY | END 2021-07-21 23:59 | disposition home or self-care (01) | LOC: IMMUN 07-22 15:19 | PROVIDERS: PCP Family Medicine; Referring Provider Family Medicine; Visit Provider Family Medicine | DX: Z23 Encounter for immunization (principal) ==

== ENCOUNTER 2021-09-25 09:04 | Outpatient (CLI) | payer BC, SELFPAY ==
[2021-09-25 10:01] LABS: Absolute Lymphocyte Count 1.21 X10^3/uL (0.83-4.51); Absolute Neutrophil Count 6.6 X10^3/uL (2.0-7.7); Basophil% 1.2 % (0-1); Eosinophils% 1.2 % (0-5); Hematocrit 37.3 % (37-47); Hemoglobin 12.2 g/dL (12.0-15.0); Lymphocyte # 1.21 X10^3/ul (0.83-4.51); Lymphocyte % 14.1 % (19-41); Mean Corp Hgb Conc 32.7 g/dL (32-36); Mean Corpuscular Hgb 27.7 pg (27.0-32.0); Mean Corpuscular Volume 84.6 fL (81-99); Mean Platelet Vol. 10.1 fl (6.2-12.0); Monocyte# 0.55 X10^3/uL; Monocyte% 6.4 % (0-10); NRBC Flagged by Analyzer 0 % (0-5); Neutrophil # 6.59 X10^3/uL (2.7-7.7); Neutrophil % 76.8 % (47-70); Platelet Count 262 K/mm3 (150-450); RBC Distribution Width CV 14.2 % (11.6-14.6); RBC Distribution Width SD 43.8 fl (35.1-43.9); Red Blood Count 4.41 M/mm3 (4.2-5.4); White Blood Count 8.6 K/mm3 (4.4-11.0)
[2021-09-25 10:31] LABS: ALB/GLOB Ratio 0.9 RATIO (0.9-2.4); AST(SGOT) 21 U/L (15-37); Alanine Aminotransfer ALT/SGPT 29 U/L (13-56); Albumin, Serum 3.3 g/dL (3.2-5.0); Alkaline Phosphatase 72 U/L (45-117); Anion Gap 5 (5-15); BUN 9 mg/dL (7-18); BUN/Creat Ratio 12.3 RATIO (10-20); Chloride 105 mmol/L (98-107); Cholesterol 208 mg/dL (200); Creatinine, Serum 0.73 mg/dL (0.55-1.02); EST Glomerular Filtration Rate 94 mL/min (>60); Est Glom Filt Rate - Afr Amer 114 mL/min (>60); Globulin 3.7 g/dL (2.2-4.2); Glucose 105 mg/dL (74-106); High Density Lipoprotein 29 mg/dL; Potassium 3.7 mmol/L (3.5-5.1); Sodium Level 136 mmol/L (136-145); Triglycerides 228 mg/dL; Very Low Density Lipoprotein 46 mg/dL (5-40)
== END 2021-09-25 23:59 | disposition home or self-care (01) ==
LOC: MTLAB 09:06
PROVIDERS: PCP Family Medicine; Referring Provider Physician Assistant; Visit Provider Physician Assistant
DX: L70.0 Acne vulgaris (principal); Z79.899 Other long term (current) drug therapy
CPT/HCPCS: 36415; 80053; 80061; 85025

== ENCOUNTER → 2021-10-14 | Outpatient (CLI) | payer BC, SELFPAY ==
[2021-10-14 10:10] LABS: Absolute Neutrophil Count 4.5 X10^3/uL (2.0-7.7); Basophil% 1.5 % (0-1); Eosinophil# 0.11 X10^3/uL; Eosinophils% 1.7 % (0-5); Hematocrit 39.8 % (37-47); Hemoglobin 12.6 g/dL (12.0-15.0); Lymphocyte % 20.1 % (19-41); Mean Corp Hgb Conc 31.7 g/dL (32-36); Mean Corpuscular Hgb 27.5 pg (27.0-32.0); Mean Corpuscular Volume 86.9 fL (81-99); Mean Platelet Vol. 10.1 fl (6.2-12.0); Monocyte# 0.43 X10^3/uL; Monocyte% 6.7 % (0-10); NRBC Flagged by Analyzer 0 % (0-5); Neutrophil # 4.49 X10^3/uL (2.7-7.7); Neutrophil % 69.5 % (47-70); Platelet Count 305 K/mm3 (150-450); RBC Distribution Width CV 14.1 % (11.6-14.6); RBC Distribution Width SD 44.9 fl (35.1-43.9); Red Blood Count 4.58 M/mm3 (4.2-5.4); White Blood Count 6.5 K/mm3 (4.4-11.0)
[2021-10-14 11:07] LABS: ALB/GLOB Ratio 0.9 RATIO (0.9-2.4); AST(SGOT) 22 U/L (15-37); Alanine Aminotransfer ALT/SGPT 32 U/L (13-56); Albumin, Serum 3.5 g/dL (3.2-5.0); Alkaline Phosphatase 76 U/L (45-117); Anion Gap 10 (5-15); BUN 9 mg/dL (7-18); BUN/Creat Ratio 12.4 RATIO (10-20); Calcium,Total 8.4 mg/dL (8.5-10.1); Chloride 106 mmol/L (98-107); Cholesterol 238 mg/dL (200); Creatinine, Serum 0.73 mg/dL (0.55-1.02); EST Glomerular Filtration Rate 94 mL/min (>60); Est Glom Filt Rate - Afr Amer 114 mL/min (>60); Globulin 3.7 g/dL (2.2-4.2); Glucose 103 mg/dL (74-106); High Density Lipoprotein 33 mg/dL; Potassium 4.3 mmol/L (3.5-5.1); Protein, Total 7.2 g/dL (6.4-8.2); Sodium Level 138 mmol/L (136-145); T4 Free Direct 0.95 ng/dL (0.76-1.46); Thyroid Stim Hormone (TSH) 1.63 uIU/mL (0.358-3.74); Triglycerides 147 mg/dL; Very Low Density Lipoprotein 29 mg/dL (5-40)
[2021-10-16 08:10] LABS: Thyroid Stim Immunoglob <0.10 IU/L (0.00-0.55)
[2021-10-16 09:27] LABS: Thyroglobulin Antibody < 1.0 IU/mL (0.0-0.9); Thyroid Peroxidase AB < 8 IU/mL (0-34)
== END | disposition home or self-care (01) ==
LOC: MTLAB 09:33
PROVIDERS: PCP Family Medicine; Referring Provider Family Medicine; Visit Provider Family Medicine
DX: E01.0 Iodine-deficiency related diffuse (endemic) goiter (principal); E66.01 Morbid (severe) obesity due to excess calories
CPT/HCPCS: 80053; 80061; 84439; 84443; 84445; 85025; 86376; 86800

== ENCOUNTER → 2021-10-20 | Outpatient (CLI) | payer BC, SELFPAY ==
--- NOTE | 2021-10-20 12:12 | US_ITS ---
STUDY: THYROID ULTRASOUND REASON FOR EXAM: Female, 40 years old. THYROMEGALY felt by doctor TECHNIQUE: Ultrasound evaluation of the thyroid was performed with real-time and static mota-scale imaging. COMPARISON: None. FINDINGS: RIGHT LOBE: The right lobe of the thyroid gland is mildly enlarged and measures 5.2 cm x 1.8 cm x 1.2 cm. There is a heterogeneous echotexture. There are 2 cystic structures in the mid and inferior pole of the right lobe of the thyroid. The larger cyst measures 4 mm x 4 mm x 2 mm. LEFT LOBE: The left lobe of the thyroid gland is slightly enlarged and measures 5.2 cm x 1.7 cm x 1 cm. There is a heterogeneous echotexture. There is a 3 mm x 3 mm x 1 mm cyst in the upper pole. ISTHMUS: The isthmus measures 2 mm. The regional lymph nodes are normal. US/Thyroid IMPRESSION: Mildly enlarged thyroid. Small bilateral thyroid cysts. Electronically Signed: Juan David Green MD at 13:23 EDT ,
== END | disposition home or self-care (01) ==
LOC: US 12:10
PROVIDERS: PCP Family Medicine; Visit Provider Family Medicine
DX: E01.0 Iodine-deficiency related diffuse (endemic) goiter (principal)
CPT/HCPCS: 76536

== ENCOUNTER → 2022-01-05 | Outpatient (CLI) | payer OTHER, SELFPAY ==
[2022-01-05 19:09] LABS: hCG Titer Quant., Serum < 1 mIU/mL (1-3)
== END | disposition home or self-care (01) ==
PROVIDERS: PCP Family Medicine; Referring Provider Physician Assistant; Visit Provider Physician Assistant
DX: L70.0 Acne vulgaris (principal); Z79.899 Other long term (current) drug therapy
CPT/HCPCS: 36415; 84702

== ENCOUNTER → 2022-03-05 | Outpatient (CLI) | payer OTHER, SELFPAY ==
[2022-03-05 17:58] LABS: Absolute Lymphocyte Count 1.83 X10^3/uL (0.83-4.51); Absolute Neutrophil Count 6.7 X10^3/uL (2.0-7.7); Basophil% 1.1 % (0-1); Eosinophil# 0.11 X10^3/uL; Eosinophils% 1.2 % (0-5); Hematocrit 41.6 % (37-47); Hemoglobin 13.2 g/dL (12.0-15.0); Lymphocyte # 1.83 X10^3/ul (0.83-4.51); Lymphocyte % 19.4 % (19-41); Mean Corp Hgb Conc 31.7 g/dL (32-36); Mean Corpuscular Hgb 28.8 pg (27.0-32.0); Mean Corpuscular Volume 90.6 fL (81-99); Mean Platelet Vol. 10.5 fl (6.2-12.0); Monocyte# 0.64 X10^3/uL; Monocyte% 6.8 % (0-10); NRBC Flagged by Analyzer 0 % (0-5); Neutrophil # 6.73 X10^3/uL (2.7-7.7); Neutrophil % 71.2 % (47-70); Platelet Count 297 K/mm3 (150-450); RBC Distribution Width CV 13.4 % (11.6-14.6); RBC Distribution Width SD 44.7 fl (35.1-43.9); Red Blood Count 4.59 M/mm3 (4.2-5.4); White Blood Count 9.4 K/mm3 (4.4-11.0)
[2022-03-05 18:45] LABS: ALB/GLOB Ratio 0.9 RATIO (0.9-2.4); AST(SGOT) 12 U/L (15-37); Alanine Aminotransfer ALT/SGPT 26 U/L (13-56); Albumin, Serum 3.5 g/dL (3.2-5.0); Alkaline Phosphatase 82 U/L (45-117); Anion Gap 6 (5-15); BUN 18 mg/dL (7-18); BUN/Creat Ratio 21.8 RATIO (10-20); Calcium,Total 9.1 mg/dL (8.5-10.1); Chloride 104 mmol/L (98-107); Cholesterol 207 mg/dL (200); Creatinine, Serum 0.83 mg/dL (0.55-1.02); EST Glomerular Filtration Rate 81 mL/min (>60); Est Glom Filt Rate - Afr Amer 98 mL/min (>60); Glucose 77 mg/dL (74-106); High Density Lipoprotein 39 mg/dL; Potassium 4.2 mmol/L (3.5-5.1); Protein, Total 7.5 g/dL (6.4-8.2); Sodium Level 137 mmol/L (136-145); Triglycerides 154 mg/dL; Very Low Density Lipoprotein 31 mg/dL (5-40)
== END | disposition home or self-care (01) ==
LOC: MFPLAB 14:31
PROVIDERS: PCP Family Medicine; Referring Provider Family Medicine; Visit Provider Family Medicine
DX: E78.5 Hyperlipidemia, unspecified (principal)
CPT/HCPCS: 36415; 80053; 80061; 85025

== ENCOUNTER → 2022-09-02 | Outpatient (CLI) | payer BC, SELFPAY ==
[2022-09-02 17:45] LABS: Absolute Lymphocyte Count 1.73 X10^3/uL (0.83-4.51); Absolute Neutrophil Count 7.8 X10^3/uL (2.0-7.7); Eosinophil# 0.07 X10^3/uL; Eosinophils% 0.7 % (0-5); Hematocrit 40.6 % (37-47); Hemoglobin 12.8 g/dL (12.0-15.0); Lymphocyte # 1.73 X10^3/ul (0.83-4.51); Mean Corp Hgb Conc 31.5 g/dL (32-36); Mean Corpuscular Hgb 27.9 pg (27.0-32.0); Mean Corpuscular Volume 88.6 fL (81-99); Mean Platelet Vol. 9.9 fl (6.2-12.0); Monocyte# 0.46 X10^3/uL; Monocyte% 4.5 % (0-10); NRBC Flagged by Analyzer 0 % (0-5); Neutrophil # 7.79 X10^3/uL (2.7-7.7); Neutrophil % 76.4 % (47-70); Platelet Count 269 K/mm3 (150-450); RBC Distribution Width CV 13.2 % (11.6-14.6); RBC Distribution Width SD 43.1 fl (35.1-43.9); Red Blood Count 4.58 M/mm3 (4.2-5.4); White Blood Count 10.2 K/mm3 (4.4-11.0)
[2022-09-02 18:38] LABS: ALB/GLOB Ratio 1.1 RATIO (0.9-2.4); AST(SGOT) 12 U/L (15-37); Alanine Aminotransfer ALT/SGPT 26 U/L (13-56); Albumin, Serum 3.7 g/dL (3.2-5.0); Alkaline Phosphatase 74 U/L (45-117); Anion Gap 9 (5-15); BUN 15 mg/dL (7-18); BUN/Creat Ratio 19.2 RATIO (10-20); Calcium,Total 9.4 mg/dL (8.5-10.1); Chloride 103 mmol/L (98-107); Cholesterol 170 mg/dL (200); Creatinine, Serum 0.78 mg/dL (0.55-1.02); EST Glomerular Filtration Rate 86 mL/min (>60); Est Glom Filt Rate - Afr Amer 104 mL/min (>60); Globulin 3.5 g/dL (2.2-4.2); Glucose 98 mg/dL (74-106); High Density Lipoprotein 38 mg/dL; Potassium 3.7 mmol/L (3.5-5.1); Protein, Total 7.2 g/dL (6.4-8.2); Sodium Level 138 mmol/L (136-145); Triglycerides 126 mg/dL; Very Low Density Lipoprotein 25 mg/dL (5-40)
== END | disposition home or self-care (01) ==
LOC: MFPLAB 15:17
PROVIDERS: PCP Family Medicine; Referring Provider Family Medicine; Visit Provider Family Medicine
DX: K21.9 Gastro-esophageal reflux disease without esophagitis (principal); E78.5 Hyperlipidemia, unspecified
CPT/HCPCS: 36415; 80053; 80061; 85025